=== PATIENT | female | born 1945 | race Caucasian/White ===

== ENCOUNTER → 2016-06-29 | Outpatient (CLI) | payer BC ==
[~2016-06-29] MED LIST: AMOX500C3 PO; ASPI81TA28 PO; BIMA0.01 OPB; HYDR500C3 PO; TPRSR/25 PO
== END | disposition home or self-care (01) ==
LOC: C.RDSM 13:20
PROVIDERS: ATTEND Physical Medicine & Rehabilitation Sports Medicine
DX: M25.562 Pain in left knee (principal)

== ENCOUNTER → 2016-09-05 | Outpatient (CLI) | payer BC ==
--- NOTE | 2016-09-05 15:01 | MAMMOGRAPHY REPORT ---
BILATERAL DIGITAL SCREENING MAMMOGRAM WITH CAD: 09/05/2016 TECHNIQUE: Current study was also evaluated with a Computer Aided Detection (CAD) system. Bilatera l CC and MLO views were obtained. COMPARISON: Comparison is made to exams dated: 09/05/2015 mammogram, 09/01/2014 mammogram, 08/28/2012 mammogram, 08/10/2011 mammogram, 08/31/2013 mammogram, and 08/09/2010 mammogram - [facility]. BREAST COMPOSITION: The tissue of both breasts is heterogeneously dense, which may obscure small ma sses. FINDINGS: No suspicious masses, calcifications, or areas of architectural distortion are noted in e ither breast. There has been no significant interval change compared to prior exams. Scattered bilat eral benign-appearing calcifications are not significantly changed. Ovoid asymmetry in the right la teral anterior breast is stable dating back to at least the 2008 exam. IMPRESSION: ACR BI-RADS CATEGORY 2: BENIGN There is no mammographic evidence of malignancy. A 1 year screening mammogram is recommended. The p atient will receive written notification of the results. Approximately 10% of breast cancers are not detected with mammography. A negative mammographic repor t should not delay biopsy if a clinically suggestive mass is present. Selene Lamb M.D. ah/:09/05/2016 13:41:01 Framer: Eryn CID)(M), [facility] letter sent: Normal 1/2 BI-RADS Code: ACR BI-RADS Category 2: Benign
== END | disposition home or self-care (01) ==
LOC: C.MAMM 11:19
PROVIDERS: ATTEND Obstetrics & Gynecology
DX: Z12.31 Encounter for screening mammogram for malignant neoplasm of breast (principal)

== ENCOUNTER → 2016-12-24 | Outpatient (CLI) | payer BC | END | disposition home or self-care (01) | LOC: C.MAMM 14:35 | PROVIDERS: ATTEND Family Medicine | DX: M81.0 Age-related osteoporosis without current pathological fracture (principal); M85.89 Other specified disorders of bone density and structure, multiple sites ==

== ENCOUNTER → 2017-07-23 | Outpatient (CLI) | payer BC ==
--- NOTE | 2017-07-23 09:10 | DIAGNOSTIC IMAGING REPORT ---
CHEST 2 VIEWS ROUTINE CLINICAL HISTORY: 72 years-old Female presenting with R43.8 R05 R63.4 R63.0 E04.9, diffuse goiter, weight loss. TECHNIQUE: PA and lateral views of the chest were obtained. COMPARISON: 07/26/2015. FINDINGS: Atherosclerosis of the aortic arch. Cardiac silhouette normal in size. Lungs and pleural spaces clear. Mildly exaggerated thoracic kyphosis. Osteopenia may be present. No compression deformity. Upper abdomen normal. IMPRESSION: 1. No acute cardiopulmonary disease. Electronically signed by: Kennedy Saeed M.D. 07/23/2017 9:09 AM Dictated Date/Time: 07/23/2017 9:07 AM
== END | disposition home or self-care (01) ==
LOC: C.RAD1850 08:55
PROVIDERS: ATTEND Family Medicine
DX: R43.8 Other disturbances of smell and taste (principal); R05 Cough; R63.4 Abnormal weight loss; R63.0 Anorexia; E04.9 Nontoxic goiter, unspecified

== ENCOUNTER → 2017-07-25 | Outpatient (CLI) | payer BC ==
--- NOTE | 2017-07-25 11:02 | DIAGNOSTIC IMAGING REPORT ---
SOFT TISS HEAD/NECK-THYROID CLINICAL HISTORY: 72 years-old Female with E04.9. Multinodular goiter COMPARISON: Thyroid ultrasound 02/24/2016 TECHNIQUE: Multiple real time sonographic images of the thyroid were obtained accessing franklin scale appearance and color doppler flow. FINDINGS: MEASUREMENTS: Right lobe: 6.9 x 1.9 x 2.3 cm Left lobe: 4.9 x 1.3 x 1.4 cm Isthmus: 0.4 cm PARENCHYMA: The thyroid parenchymal echotexture is diffusely heterogeneous. NODULES: Multiple bilateral thyroid nodules redemonstrated. There is a complex mixed echogenicity ovoid solid circumscribed nodule of the lower pole right thyroid with small internal cystic spaces, 3.8 x 2.3 x 3.1 cm, previously 4.1 x 3.6 x 2.0 cm. A spongiform-appearing solid nodule of the mid pole right thyroid measures 1.1 cm, previously 1.3 cm. The largest nodule on the left is solid and isoechoic with small internal cystic spaces and ill-defined margins, 1.7 x 1.2 x 0.9 cm, previously 1.5 x 1.3 x 0.9 cm. Additional solid subcentimeter nodules are also seen throughout. IMPRESSION: Multinodular goiter without significant change of the multiple thyroid nodules from comparison study dated 02/24/2016. The above report was generated using voice recognition software. It may contain grammatical, syntax or spelling errors. Electronically signed by: En Quintanilla M.D. 07/25/2017 11:01 AM Dictated Date/Time: 07/25/2017 10:56 AM
== END | disposition home or self-care (01) ==
LOC: C.ULTR 09:57
PROVIDERS: ATTEND Family Medicine
DX: E04.2 Nontoxic multinodular goiter (principal)

== ENCOUNTER → 2017-07-26 | Outpatient (CLI) | payer BC ==
[~2017-07-26] MED LIST changes: +OPTIRAY 320 IV PRN
--- NOTE | 2017-07-26 13:35 | DIAGNOSTIC IMAGING REPORT ---
CT SCAN OF THE ABDOMEN AND PELVIS WITH IV CONTRAST CLINICAL HISTORY: Anorexia. COMPARISON STUDY: Abdominal CT dated 08/12/2010. TECHNIQUE: Following the IV administration of 94 cc of Optiray 320, CT scan of the abdomen and pelvis is performed from the lung bases to the proximal femora. Images are reviewed in the axial, sagittal, and coronal planes. IV contrast was administered without complication. A dose lowering technique was utilized adhering to the principles of ALARA. CT DOSE: 354.69 mGycm FINDINGS: Lung bases: The heart is normal in size and without pericardial effusion. Minimal tree-in-bud opacities groundglass change are present at the left lung base, best seen on axial image #42. The lung bases are otherwise clear. Liver: The contrast-enhanced liver is normal in size, contour, and attenuation. There is no intrahepatic biliary ductal dilatation. The hepatic veins and portal veins are patent. There is an 8 cm cyst identified in the right hepatic lobe. This has increased in size from 2010 when it measured up to 6 cm. Additional tiny cysts are scattered throughout both hepatic lobes. Gallbladder: Calcified gallstones are identified. There is no CT evidence of acute cholecystitis. Spleen: Normal in size and attenuation. Pancreas: Unremarkable. Adrenal glands: Unremarkable. Kidneys: The contrast enhanced kidneys are normal in size and without hydronephrosis. The kidneys enhance symmetrically. A 2.6 cm cyst is noted in the left upper pole. Additional smaller cysts are identified, as well as scattered subcentimeter cortical hypodensities which also likely resent cysts but are too small for definitive characterization. Abdominal vasculature: The abdominal aorta is normal in course and caliber noting mild atherosclerotic calcification. Bowel: Moderate colonic fecal retention is observed. No bowel obstruction is seen. The appendix is not identified and reported surgically absent. Peritoneum: There is no intraperitoneal free air or abdominal ascites. Lymphadenopathy: None. Pelvic viscera: The bladder is normal as visualized. The uterus is surgically absent. No adnexal lesion is seen. Skeletal structures: The skeletal structures are osteopenic. Mild lumbosacral spondylosis is observed. No lytic or blastic lesions are seen. IMPRESSION: 1. There are no acute infectious or inflammatory findings in the abdomen or pelvis. 2. Mild patchy foci of tree-in-bud nodularity with faint groundglass change is seen at the left lung base. This likely represents a mild infectious/inflammatory pneumonitis. Clinical correlation will be required. 3. Moderate colonic fecal retention. 4. Cholelithiasis. 5. Additional findings as above. Electronically signed by: Nicolás Hernandez M.D. 07/26/2017 1:34 PM Dictated Date/Time: 07/26/2017 1:26 PM
== END | disposition home or self-care (01) ==
LOC: C.CTS 12:46
PROVIDERS: ATTEND Family Medicine
DX: R63.0 Anorexia (principal); K85.90 Acute pancreatitis without necrosis or infection, unspecified; R63.4 Abnormal weight loss; K80.20 Calculus of gallbladder without cholecystitis without obstruction; K59.00 Constipation, unspecified

== ENCOUNTER → 2017-10-15 | Outpatient (CLI) | payer BC ==
[~2017-10-15] MED LIST changes: -OPTIRAY 320 IV PRN
--- NOTE | 2017-10-16 15:45 | MAMMOGRAPHY REPORT ---
BILATERAL DIGITAL SCREENING MAMMOGRAM TOMOSYNTHESIS WITH CAD: 10/15/2017 CLINICAL HISTORY: Routine screening. Patient has no complaints. TECHNIQUE: Breast tomosynthesis in addition to standard 2D mammography was performed. Current study was also evaluated with a Computer Aided Detection (CAD) system. COMPARISON: Comparison is made to exams dated: 09/05/2016 mammogram, 09/05/2015 mammogram, 09/01/2014 m ammogram, 08/31/2013 mammogram, 08/28/2012 mammogram, and 08/10/2011 mammogram - [facility] enter. BREAST COMPOSITION: The tissue of both breasts is heterogeneously dense, which may obscure small mas ses. FINDINGS: There are a few stable benign rounded microcalcifications in the breasts. No suspicious ma ss, architectural distortion or cluster of microcalcifications is seen. IMPRESSION: ACR BI-RADS CATEGORY 1: NEGATIVE There is no mammographic evidence of malignancy. A 1 year screening mammogram is recommended. The pa tient will receive written notification of the results. Approximately 10% of breast cancers are not detected with mammography. A negative mammographic report should not delay biopsy if a clinically suggestive mass is present. Sarah Mae M.D. ay/:10/15/2017 15:55:53 Clinic Coordinator: Adry Delgado, [facility] letter sent: Normal 1/2 BI-RADS Code: ACR BI-RADS Category 1: Negative
== END | disposition home or self-care (01) ==
LOC: C.MAMM 15:30
PROVIDERS: ATTEND Family Medicine
DX: Z12.31 Encounter for screening mammogram for malignant neoplasm of breast (principal)

== ENCOUNTER 2023-01-17 15:40 | Inpatient (IN) ==
--- NOTE | 2023-01-17 16:05 | Emergency Department Note ---
History of Present Illness General Chief complaint: Hip Pain Stated complaint: FALL, RT HIP PAIN Time Seen by Provider: 01/17/23 15:58 Source: patient, RN notes reviewed and old records reviewed (I have reviewed endoscopy results from today as well as anesthesiology note) Mode of arrival: ambulatory Limitations: no limitations History of Present Illness Maximum Pain Intensity: 8 This patient is 77-year-old female who comes in after falling. She had just had an upper endoscopy. She has had ongoing weight loss and diarrhea. She said she was feeling fine and was putting her pants on when she tripped and fell she has right hip pain she is unable to bear weight. On my exam it is shortened and rotated. She denies that she hit her head and denies any other injuries. Denies loss of consciousness neck pain back pain chest pain shortness of breath or abdominal pain. She is being treated for Lyme disease at present and says her symptoms of gotten significantly better. Home Medications Medication Instructions Recorded Confirmed Type aspirin 81 mg tablet,delayed 81 mg PO HS 05/27/20 01/17/23 History release bimatoprost 0.01 % eye drops 1 drp ophthalmic (eye) HS 05/27/20 01/17/23 History ([place]) hydroxyurea 500 mg capsule 500 mg PO QAM 05/27/20 01/17/23 History metoprolol succinate 25 mg 25 mg PO QAM 05/27/20 01/17/23 History tablet,extended release 24 hr duloxetine 20 mg capsule,delayed 20 mg PO QPM 12/13/22 01/17/23 History release doxycycline hyclate 100 mg capsule 100 mg PO BID 21 days #42 caps 12/30/22 01/17/23 Rx Vitamin D3 500 mcg PO QAM 01/09/23 01/17/23 History pantoprazole 40 mg tablet,delayed 40 mg PO QAM 01/17/23 01/17/23 History release Allergies Allergy/AdvReac Type Severity Reaction Status Date / Time Iodinated Contrast Media Allergy Intermediate Hives/Itchi Verified 01/17/23 13:26 ng Past Med/Surg History Medical History Arthritis in both knees and hands Gallstones NO PROBLEM WITH Hx of renal calculi passed on own Lyme disease dx 12/23/22, currently on doxycycline Polycythemia rubra vera Tachycardia REASON FOR METOPROLOL Varicose veins of both lower extremities Surgical History History of colonoscopy History of esophagogastroduodenoscopy (EGD) History of hernia surgery X2 Hx of appendectomy done during hysterectomy Hx of bilateral cataract extraction Hx of tonsillectomy Hx of total hysterectomy with removal of both tubes and ovaries Family History Sister Family history of diabetes mellitus Son Family history of diabetes mellitus Social History Smoking Status: Never smoker Second Hand Exposure: No; Do You Dip or Chew Tobacco: No; Hx Alcohol Use: No Hx Substance Use: No Preferred Language: Filipino Communication Ability: Effective Anesthesiologist And Critical Care Required: No Beliefs That Will Affect Care: None Current Living Situation: Spouse and Family Current Living Situation Comment: 2 autistic sons Feels Safe at Home: Yes Assistive Devices: Denture - Upper, Denture - Lower and Glasses Review of Systems A total of 10 systems reviewed and were otherwise negative Physical Exam Vital Signs Vital Signs - 24 hr 01/17/23 15:43 01/17/23 16:34 01/17/23 16:24 Temperature 36.9 C Temperature Source Temporal Artery Scan Pulse Rate 75 77 80 Pulse Rhythm Regular Pulse Strength Normal Respiratory Rate 18 15 Respiratory Effort / Characteristics Non-Labored Respiratory Depth Normal Respiratory Pattern Regular Blood Pressure 129/76 Blood Pressure Mean 93 Blood Pressure Position Sitting Pulse Oximetry 99 Oxygen Delivery Method Room Air Sepsis Recent Fever Within 48 Hours No Sepsis New/Unexplained Change in Mental Status No Sepsis Action Taken by Nursing No Action Required 01/17/23 16:30 01/17/23 16:31 01/17/23 16:31 Temperature Temperature Source Pulse Rate 79 76 Pulse Rhythm Pulse Strength Respiratory Rate 23 14 Respiratory Effort / Characteristics Respiratory Depth Respiratory Pattern Blood Pressure 156/95 H Blood Pressure Mean 120 Blood Pressure Position Pulse Oximetry Oxygen Delivery Method Sepsis Recent Fever Within 48 Hours Sepsis New/Unexplained Change in Mental Status Sepsis Action Taken by Nursing 01/17/23 16:40 01/17/23 16:50 01/17/23 17:00 Temperature Temperature Source Pulse Rate 82 82 84 Pulse Rhythm Pulse Strength Respiratory Rate 19 15 16 Respiratory Effort / Characteristics Respiratory Depth Respiratory Pattern Blood Pressure Blood Pressure Mean Blood Pressure Position Pulse Oximetry Oxygen Delivery Method Sepsis Recent Fever Within 48 Hours Sepsis New/Unexplained Change in Mental Status Sepsis Action Taken by Nursing 01/17/23 17:01 01/17/23 17:01 01/17/23 17:10 Temperature Temperature Source Pulse Rate 86 85 Pulse Rhythm Pulse Strength Respiratory Rate 19 17 Respiratory Effort / Characteristics Respiratory Depth Respiratory Pattern Blood Pressure 141/68 H Blood Pressure Mean 113 Blood Pressure Position Pulse Oximetry Oxygen Delivery Method Sepsis Recent Fever Within 48 Hours Sepsis New/Unexplained Change in Mental Status Sepsis Action Taken by Nursing 01/17/23 17:20 01/17/23 17:30 01/17/23 17:30 Temperature Temperature Source Pulse Rate 84 85 Pulse Rhythm Pulse Strength Respiratory Rate 17 18 Respiratory Effort / Characteristics Respiratory Depth Respiratory Pattern Blood Pressure 155/105 H Blood Pressure Mean 127 Blood Pressure Position Pulse Oximetry Oxygen Delivery Method Sepsis Recent Fever Within 48 Hours Sepsis New/Unexplained Change in Mental Status Sepsis Action Taken by Nursing 01/17/23 17:40 01/17/23 17:50 01/17/23 18:00 Temperature Temperature Source Pulse Rate 88 83 Pulse Rhythm Pulse Strength Respiratory Rate 24 13 Respiratory Effort / Characteristics Respiratory Depth Respiratory Pattern Blood Pressure 157/78 H Blood Pressure Mean 113 Blood Pressure Position Pulse Oximetry Oxygen Delivery Method Sepsis Recent Fever Within 48 Hours Sepsis New/Unexplained Change in Mental Status Sepsis Action Taken by Nursing 01/17/23 18:00 01/17/23 18:10 Temperature Temperature Source Pulse Rate 92 H 82 Pulse Rhythm Pulse Strength Respiratory Rate 20 15 Respiratory Effort / Characteristics Respiratory Depth Respiratory Pattern Blood Pressure Blood Pressure Mean Blood Pressure Position Pulse Oximetry Oxygen Delivery Method Sepsis Recent Fever Within 48 Hours Sepsis New/Unexplained Change in Mental Status Sepsis Action Taken by Nursing General: Well developed well nourished non-ill appearing older female who appears in no acute distress, breathing comfortably on room air. Normal speech HEENT: Normal cephalic atraumatic. Pupils are equal round and reactive to light . Sclera anicteric extraocular movements are intact. Oropharynx is pink with moist mucous membranes. No swelling of the mouth lips or tongue. Neck: Supple with a midline trachea. No meningeal signs or stiffness, no JVD or bruits. No Stridor. Chest: Clear to auscultation bilaterally. No wheezes or rhonchi. No increased work of breathing. Heart: Regular rate and rhythm without murmurs or gallops. Abdomen: Soft nontender, nondistended without rebound guarding or rigidity. Extremities: No cyanosis clubbing or edema. No calf tenderness or assymetry. The right leg is extra internally rotated and shortened concerning for hip fracture/dislocation Spine/Back. Non tender to palpation. No CVA tenderness Skin: Good turgor without rashes. Neurologic exam: Cranial nerves two through 12 are intact. Motor and sensation are intact and symmetrical throughout. Course Administered Medications Duloxetine HCl (Duloxetine Hcl 20 Mg Cap) 20 mg PO QPM MARGARITA Stop: 02/16/23 20:59 Last Admin: 01/17/23 21:37 Dose: 20 mg Documented By: ADDIE Hydromorphone HCl (Hydromorphone Inj 0.5 Mg/0.5 Ml Syr) 0.5 mg IV Q3H PRN PRN Reason: Pain, breakthrough Stop: 01/31/23 18:25 Last Admin: 01/17/23 23:15 Dose: 0.5 mg Documented By: Admin: 01/17/23 19:11 Dose: 0.5 mg Documented By: REBECCA Lactated Ringer's (Lr) 1,000 mls @ 80 mls/hr IV .[id number] MARGARITA Stop: 02/16/23 17:29 Last Admin: 01/17/23 18:03 Dose: 125 mls/hr Documented By: REBECCA Acetaminophen (Ofirmev) 1,000 mg in 100 mls @ 400 mls/hr IV Q8H PRN PRN Reason: pain, first line Stop: 01/20/23 18:25 Last Infusion: 01/17/23 19:23 Dose: 0 mls/hr Documented By: Admin: 01/17/23 19:02 Dose: 400 mls/hr Documented By: REBECCA Discontinued Medications Potassium Chloride (K Earnest / Wtr) 10 meq in 100 mls @ 100 mls/hr IV Q1H MARGARITA Stop: 01/17/23 21:59 Last Admin: 01/17/23 23:11 Dose: 100 mls/hr Documented By: Infusion: 01/17/23 22:38 Dose: 100 mls/hr Documented By: Admin: 01/17/23 21:38 Dose: 100 mls/hr Documented By: Infusion: 01/17/23 20:19 Dose: 0 mls/hr Documented By: Admin: 01/17/23 19:06 Dose: 100 mls/hr Documented By: Infusion: 01/17/23 19:06 Dose: 0 mls/hr Documented By: Admin: 01/17/23 18:03 Dose: 100 mls/hr Documented By: REBECCA Magnesium Sulfate/Dextrose (Magnesium Sulfate / D5w) 1 gm in 100 mls @ 50 mls/hr IV Q2H MARGARITA Stop: 01/17/23 22:29 Last Admin: 01/17/23 21:38 Dose: 50 mls/hr Documented By: Infusion: 01/17/23 21:11 Dose: 50 mls/hr Documented By: Admin: 01/17/23 19:11 Dose: 50 mls/hr Documented By: REBECCA Magnesium Oxide (Magnesium Oxide 400 Mg Tab) 400 mg PO NOW STA Stop: 01/17/23 18:28 Last Admin: 01/17/23 19:02 Dose: 400 mg Documented By: REBECCA Morphine Sulfate (Morphine Sulfate 2 Mg/Ml Carp) 2 mg IV NOW STA Stop: 01/17/23 16:08 Last Admin: 01/17/23 16:19 Dose: 2 mg Documented By: REBECCA Ondansetron HCl (Ondansetron Inj 2 Mg/Ml 2 Ml Vial) 4 mg IV NOW STA Stop: 01/17/23 16:08 Last Admin: 01/17/23 16:19 Dose: 4 mg Documented By: REBECCA Medical Decision Making Differential Diagnosis Hip fracture, hip dislocation, pelvic fracture, electrolyte or metabolic abnormality, anemia, traumatic injury Medical Records Attestation: I reviewed the patient's medical records. Home Medications Current Medication List: was personally reviewed by me Laboratory Data Attestation: I reviewed the patient's lab results. 01/17/23 16:07 01/17/23 20:24 Lab Results 01/17/23 01/17/23 01/17/23 Range/Units 16:07 16:07 16:58 WBC 5.34 (4.8-10.8) K/ul RBC 3.57 L (4.20-5.40) M/uL Hgb 13.1 (12.0-16.0) g/dl Hct 38.2 (37.0-47.0) % MCV 107.0 H (80.0-100.0) fL MCH 36.7 H (25.0-34.0) pg MCHC 34.3 (32.0-36.0) g/dL RDW Std Deviation 63.1 H (36.4-46.3) fL RDW Coeff of Zehra 15.7 H (11.5-14.5) % Plt Count 347 (130-400) K/uL MPV 10.2 (9.4-12.4) fL Immature Gran % (Auto) 0.2 % Neut % (Auto) 59.9 % Lymph % (Auto) 27.9 % [place] % (Auto) 7.7 % Eos % (Auto) 3.2 % Baso % (Auto) 1.1 % Neut # (Auto) 3.20 (1.40-6.50) K/uL Lymph # (Auto) 1.49 (1.2-3.4) K/uL [place] # (Auto) 0.41 (0.11-0.59) K/uL Eos # (Auto) 0.17 (0-0.50) K/uL Baso # (Auto) 0.06 (0-0.2) K/uL Immature Gran # (Auto) 0.01 (0.01-0.20) K/uL PT (9.0-12.0) Seconds INR (0.9-1.1) APTT (21.0-31.0) Seconds PTT Ratio Sodium 133 L (136-145) mmol/L Potassium 2.9 L (3.5-5.1) mmol/L Chloride 101 (98-107) mmol/L Carbon Dioxide 22 (21-32) mmol/L Anion Gap 10 (3-11) BUN 12 (6-23) mg/dl Creatinine 0.66 (0.6-1.2) mg/dl Est Cr Clr Drug Dosing Not Reportable Est GFR ( Amer) 98.1 ml/min Est GFR (Non-Af Amer) 84.6 ml/min BUN/Creatinine Ratio 18.2 (10-20) Glucose 102 H (70-99(Fasting)) mg/dl Calcium 9.2 (8.6-10.3) mg/dl Magnesium (1.7-2.4) mg/dl Total Bilirubin 0.8 (0.2-1.0) mg/dl AST 19 (13-39) U/L ALT 13 (7-52) U/L Alkaline Phosphatase 38 (34-104) U/L Total Protein 6.5 (6.0-8.3) gm/dl Albumin 3.9 (3.4-5.0) gm/dl Globulin 2.6 (2.5-4.0) gm/dl Albumin/Globulin Ratio 1.5 (0.9-2) Urine Color Yellow Urine Appearance Clear (Clear) Urine pH 6.5 (4.5-7.5) Ur Specific [place] 1.011 (1.000-1.030) Urine Protein Negative (Negative) Urine Glucose (UA) Negative (Negative) Urine Ketones 1+ H (Negative) Urine Blood 2+ H (Negative) Urine Nitrite Negative (Negative) Urine Bilirubin Negative (Negative) Urine Urobilinogen Negative (Negative) Ur Leukocyte Esterase Negative (Negative) Urine WBC (Auto) 1-5 (0-5) /hpf Urine RBC (Auto) 10-30 H (0-4) /hpf U Hyaline Cast (Auto) 1-5 (0-5) /lpf U Epithel Cells (Auto) 10-20 H (0-5) /lpf Urine Bacteria (Auto) Negative (Negative) Blood Type Antibody Screen 01/17/23 01/17/23 01/17/23 Range/Units 17:47 17:47 17:47 WBC (4.8-10.8) K/ul RBC (4.20-5.40) M/uL Hgb (12.0-16.0) g/dl Hct (37.0-47.0) % MCV (80.0-100.0) fL MCH (25.0-34.0) pg MCHC (32.0-36.0) g/dL RDW Std Deviation (36.4-46.3) fL RDW Coeff of Zehra (11.5-14.5) % Plt Count (130-400) K/uL MPV (9.4-12.4) fL Immature Gran % (Auto) % Neut % (Auto) % Lymph % (Auto) % [place] % (Auto) % Eos % (Auto) % Baso % (Auto) % Neut # (Auto) (1.40-6.50) K/uL Lymph # (Auto) (1.2-3.4) K/uL [place] # (Auto) (0.11-0.59) K/uL Eos # (Auto) (0-0.50) K/uL Baso # (Auto) (0-0.2) K/uL Immature Gran # (Auto) (0.01-0.20) K/uL PT 12.0 (9.0-12.0) Seconds INR 1.1 (0.9-1.1) APTT 27.9 (21.0-31.0) Seconds PTT Ratio 1.0 Sodium (136-145) mmol/L Potassium (3.5-5.1) mmol/L Chloride (98-107) mmol/L Carbon Dioxide (21-32) mmol/L Anion Gap (3-11) BUN (6-23) mg/dl Creatinine (0.6-1.2) mg/dl Est Cr Clr Drug Dosing Est GFR ( Amer) ml/min Est GFR (Non-Af Amer) ml/min BUN/Creatinine Ratio (10-20) Glucose (70-99(Fasting)) mg/dl Calcium (8.6-10.3) mg/dl Magnesium 1.5 L (1.7-2.4) mg/dl Total Bilirubin (0.2-1.0) mg/dl AST (13-39) U/L ALT (7-52) U/L Alkaline Phosphatase (34-104) U/L Total Protein (6.0-8.3) gm/dl Albumin (3.4-5.0) gm/dl Globulin (2.5-4.0) gm/dl Albumin/Globulin Ratio (0.9-2) Urine Color Urine Appearance (Clear) Urine pH (4.5-7.5) Ur Specific [place] (1.000-1.030) Urine Protein (Negative) Urine Glucose (UA) (Negative) Urine Ketones (Negative) Urine Blood (Negative) Urine Nitrite (Negative) Urine Bilirubin (Negative) Urine Urobilinogen (Negative) Ur Leukocyte Esterase (Negative) Urine WBC (Auto) (0-5) /hpf Urine RBC (Auto) (0-4) /hpf U Hyaline Cast (Auto) (0-5) /lpf U Epithel Cells (Auto) (0-5) /lpf Urine Bacteria (Auto) (Negative) Blood Type A Positive Antibody Screen NEGATIVE Imaging Data Attestation: I personally reviewed and interpreted this imaging study as fo llows: My Impression: Right hip x-ray-there is a right intratrochanteric hip fracture. No significant displacement Chest x-rayno acute infiltrate, failure, pneumothorax seen Radiologist's Impression: Hip X-Ray 01/17/23 16:07 RIGHT HIP 2 VIEWS CLINICAL HISTORY: Fall. Right hip injury. FINDINGS: AP and crosstable lateral views of the right hip are compared to study dated 07/24/2022. The skeletal structures are osteopenic. There is a comminuted and mildly displaced intertrochanteric fracture of the right proximal femur with overlying soft tissue edema. The visualized right hemipelvis appears intact. Advanced arthritic change is noted in the right hip. There is degenerative sclerosis of the right sacroiliac joint and the pubic symphysis. IMPRESSION: Intertrochanteric fracture of the right proximal femur as above. Electronically signed by: Nicolás Hernandez M.D. 01/17/2023 5:02 PM Chest X-Ray 01/17/23 16:08 SINGLE VIEW CHEST CLINICAL HISTORY: Fall. Hip fracture. FINDINGS: An AP, portable, supine chest radiograph is compared to study dated 12/13/2022. The cardiomediastinal silhouette is unremarkable. Chronic interstitial thickening is similar to previous. The lungs and pleural spaces are clear. No pneumothorax is seen. The skeletal structures are osteopenic. The bony thorax is grossly intact. IMPRESSION: No acute cardiopulmonary abnormality. ACT 112: Negative or not required by law. Electronically signed by: Nicolás Hernandez M.D. 01/17/2023 5:01 PM ECG Data Attestation: I personally reviewed and interpreted this ECG as follows: Indication: + weakness Rate (beats per minute): 75 Rhythm: + normal sinus ECG Intervals/blocks: + Normal QRS, + Normal QT and + Normal CT ECG [place]: + Normal ECG ST segments: + Normal ST segments ECG Findings: + Poor R wave progression; no PACs or no PVCs Comparison ECG Date: from (12/13/22) Change: no significant change MDM Narrative This patient comes in as described above. she is did suffer a mechanical fall while getting dressed after having endoscopy. She injured her hip and concerned that it is likely fracture based on her exam. she is neurologically and neurovascularly intact but is rotated and shortened. IV access was established. she is not driving. she was given morphine 2 mg IV for pain as well as Zofran 4 mg IV. Multiple blood testing was obtained x-rays obtained of the hip and the chest as per hip fracture protocol. She was reassessed. EKG does not suggest any acute coronary syndrome or arrhythmia she is no sick electrolyte or metabolic abnormalities. Chest x-ray shows no acute findings she was noted on x-ray however to have a intertrochanteric hip fracture which fits her clinical picture unfortunately. She will need to come into the hospital for further treatment and evaluation and orthopedic care would likely surgery. I have consult Dr. Valiente to see the patient he also asked that I talked to on-call Ortho and I discussed the case with Dr. Joshua who agreed with the plan. The patient has seen Dr. Davis in the past. She will be admitted for treatment evaluation of her left hip fracture. She does have mild hyponatremia and hypokalemia. Impression & Plan Fracture of right hip, Fall, Hypokalemia, Hyponatremia Discharge Plan Visit Data Chief Complaint: Hip Pain Stated Complaint: FALL, RT HIP PAIN ED Provider: William Baeza Discharge Problem: Fracture of right hip, Fall, Hypokalemia, Hyponatremia Patient Disposition: Admitted As Inpatient Discharge Instructions Interventions: ED Discharge Assessment Last Done: 01/17/23 19:26
[2023-01-17] MEDS ORDERED: ONDANSETRON INJ 2 MG/ML 2 ML VIAL IV STA (16:07)
[2023-01-17] MEDS ORDERED: MoRPHine SULFATE 2 MG/ML CARP IV STA (16:07)
[2023-01-17 16:28] LABS: Basophils # (auto) 0.06 K/uL (0-0.2); Basophils % (auto) 1.1 %; Eosinophils # (auto) 0.17 K/uL (0-0.50); Eosinophils % (auto) 3.2 %; Hematocrit (blood only) 38.2 % (37.0-47.0); Hemoglobin 13.1 g/dl (12.0-16.0); Immature Granulocytes # (auto) 0.01 K/uL (0.01-0.20); Immature Granulocytes % (auto) 0.2 %; Lymphocytes # (auto) 1.49 K/uL (1.2-3.4); Lymphocytes % (auto) 27.9 %; Mean Corpuscular Hemoglobin 36.7 pg (25.0-34.0); Mean Corpuscular Hgb Conc 34.3 g/dL (32.0-36.0); Mean Platelet Volume 10.2 fL (9.4-12.4); Monocytes # (auto) 0.41 K/uL (0.11-0.59); Monocytes % (auto) 7.7 %; Neutrophils % (auto) 59.9 %; Platelet Count 347 K/uL (130-400); RDW Coefficient of Variation 15.7 % (11.5-14.5); RDW Standard Deviation 63.1 fL (36.4-46.3); Red Blood Count 3.57 M/uL (4.20-5.40); White Blood Count 5.34 K/ul (4.8-10.8)
[2023-01-17 16:40] LABS: Albumin Level 3.9 gm/dl (3.4-5.0); Anion Gap 10 (3-11); Bilirubin,Total 0.8 mg/dl (0.2-1.0); Calcium 9.2 mg/dl (8.6-10.3); Carbon Dioxide 22 mmol/L (21-32); Chloride 101 mmol/L (98-107); Potassium 2.9 mmol/L (3.5-5.1); Sodium 133 mmol/L (136-145)
[2023-01-17 16:46] LABS: Alanine Aminotransferase 13 U/L (7-52); Albumin Globulin Ratio 1.5 (0.9-2); Alkaline Phosphatase 38 U/L (34-104); Aspartate Aminotransferase 19 U/L (13-39); BUN Creatinine Ratio 18.2 (10-20); Blood Urea Nitrogen 12 mg/dl (6-23); Est GFR (African American) 98.1 ml/min; Est GFR (Non-African American) 84.6 ml/min; Globulin 2.6 gm/dl (2.5-4.0); Glucose 102 mg/dl (70-99(Fasting)); Total Protein 6.5 gm/dl (6.0-8.3)
--- NOTE | 2023-01-17 17:02 | XRay Report ---
SINGLE VIEW CHEST CLINICAL HISTORY: Fall. Hip fracture. FINDINGS: An AP, portable, supine chest radiograph is compared to study dated 12/13/2022. The cardiome diastinal silhouette is unremarkable. Chronic interstitial thickening is similar to previous. The duane gs and pleural spaces are clear. No pneumothorax is seen. The skeletal structures are osteopenic. The bony thorax is grossly intact. IMPRESSION: No acute cardiopulmonary abnormality. ACT 112: Negative or not required by law. Electronically signed by: Nicolás Hernandez M.D. 01/17/2023 5:01 PM
--- NOTE | 2023-01-17 17:03 | XRay Report ---
RIGHT HIP 2 VIEWS CLINICAL HISTORY: Fall. Right hip injury. FINDINGS: AP and crosstable lateral views of the right hip are compared to study dated 07/24/2022. The skeletal structures are osteopenic. There is a comminuted and mildly displaced intertrochanteric frac ture of the right proximal femur with overlying soft tissue edema. The visualized right hemipelvis ap pears intact. Advanced arthritic change is noted in the right hip. There is degenerative sclerosis of the right sacroiliac joint and the pubic symphysis. IMPRESSION: Intertrochanteric fracture of the right proximal femur as above. Electronically signed by: Nicolás Hernandez M.D. 01/17/2023 5:02 PM
[2023-01-17 17:16] LABS: Appearance Urine Clear (Clear); Bacteria Urine Automated Negative (Negative); Bilirubin Urine Negative (Negative); Blood Urine 2+ (Negative); Color Urine Yellow; Glucose Urine UA Negative (Negative); Ketones Urine 1+ (Negative); Leukocyte Esterase Urine Negative (Negative); Nitrite Urine Negative (Negative); Protein Urine Negative (Negative); Specific Gravity Urine 1.011 (1.000-1.030); Urobilinogen Urine Negative (Negative); pH Urine 6.5 (4.5-7.5)
[2023-01-17] MEDS ORDERED: ONDANSETRON INJ 2 MG/ML 2 ML VIAL IV PRN (17:26)
[2023-01-17] MEDS ORDERED: NALOXONE HCL 0.4 MG/1 ML VIAL/CARP IV PRN (17:26)
[2023-01-17] MEDS ORDERED: bisacodyL 10 MG SUPP PR PRN (17:26)
[2023-01-17] MEDS ORDERED: MAGNESIUM HYDROXIDE SUSP 30 ML UDC PO PRN (17:26)
--- NOTE | 2023-01-17 17:27 | History & Physical Report ---
Date of Service January 17, 2023 Assessment & Plan (1) Fracture of right hip: Plan: Right hip fracture Patient underwent EGD/colonoscopy and upon preparing to leave fell while putting on her pants with immediate right hip pain No leukocytosis Hemoglobin 13.1 Creatinine 0.66 No history of CAD/heart failure/insulin use UA uninfected appearing Right hip x-ray: Intertrochanteric fracture of the right proximal RCRI 0 points. Class I risk, 3.9% 30 day mortality. Recommend optimization of electrolyte abnormalities including hypokalemia, then may undergo surgical repair of her acute hip fracture. Goal K >3.5, ideally 4.0. Repletion ordered. EKG: Normal sinus rhythm, no acute change, no ST segment/T wave territorial change. QTc 437. Rate 70 Hale ordered, bedrest, type and screen ordered Orthopedics consulted. Anticipate operative repair 01/18 pending improvement in potassium/magnesium. Aspirin held, n.p.o. at midnight Diarrhea, chronic. Resolved Following GI as outpatient EGD 01/17/2023: Normal esophagus/stomach/duodenum Colonoscopy 01/18/2020: Nonbleeding hemorrhoids. C. difficile/fluid aspiration bacterial cultures taken. No other obvious abnormalities appreciated. C. difficile was negative, confirmed at time of admission Follow pending GI cultures, will keep on seizure precautions until this is resulted Hypertension Aspirin held Continue metoprolol, do not hold for beta-orger withdrawal BP reasonably controlled with pain control Hypokalemia - 2.9 on admit. IV repletion ordered -Patient is concurrently hypomagnesemic, 1.5 on admit. IV and oral repletion ordered. Optimize goal 2.0 Hyponatremia Chronic, mild. In the setting of poor p.o. intake and diarrhea. Suspect solute depletion. IVFM DVT prophylaxis: SCDs Diet: N.p.o. pending surgical evaluation Disposition: Medical/surgical CODE STATUS (2) Fall: (3) Hypokalemia: History of Present Illness Primary Care Provider: Almaz Burt MD Shana is a 77-year-old female with past medical history of tachycardia, cataracts, colitis, thrombocytosis followed with hematology oncology, generalized weakness who presents to the emergency department after a fall with immediate right hip pain and inability to bear weight. She has had ongoing weight loss and diarrhea Shana is seen at the bedside. She reports that she had a colonoscopy and endoscopy for chronic diarrhea which actually went well, but when she was attempting to put on her pants to get ready to leave she lost her balance and fell striking her right hip and having immediate pain and inability to bear weight. She had no chest pain or chest pressure, denies fever, chills, sweats, and did not have any lightheadedness/dizziness/syncope/presyncope/vertigo that contributed to her fall. She feels sensation is intact in her feet bilaterally, and she is able to move her ankles but cannot flex at her right hip. She has no history of coronary disease, diabetes, or hypertension. She has chronic hypokalemia with diarrhea which has normalized with IV treatment in the past. She notes that her diarrhea did resolve about 7 days ago and she has not had diarrhea in the last week.She has previously seen Dr. Enriquez for arthritis, and was thinking about a right hip replacement but had not yet done this. takes aspirin, but does not take any anticoagulants. At time of bedside visit she rep orts she feels okay, but she is thirsty and still has pain with any attempted movement of her right hip. Feels comfortable as long as she does not move in the bed. Medical History: Reviewed Medications: Reviewed Surgical History: Reviewed Family history: Reviewed Allergies: Reviewed Social History: Reviewed Code Status: Full code Allergies Allergy/AdvReac Type Severity Reaction Status Date / Time Iodinated Contrast Media Allergy Intermediate Hives/Itchi Verified 01/17/23 13:26 Home Medications Medication Instructions Recorded Confirmed Type aspirin 81 mg tablet,delayed 81 mg PO HS 05/27/20 01/17/23 History release bimatoprost 0.01 % eye drops 1 drp ophthalmic (eye) HS 05/27/20 01/17/23 History (Lumigan) hydroxyurea 500 mg capsule 500 mg PO QAM 05/27/20 01/17/23 History metoprolol succinate 25 mg 25 mg PO QAM 05/27/20 01/17/23 History tablet,extended release 24 hr duloxetine 20 mg capsule,delayed 20 mg PO QPM 12/13/22 01/17/23 History release doxycycline hyclate 100 mg capsule 100 mg PO BID 21 days #42 caps 12/30/22 01/17/23 Rx Vitamin D3 500 mcg PO QAM 01/09/23 01/17/23 History pantoprazole 40 mg tablet,delayed 40 mg PO QAM 01/17/23 01/17/23 History release Past Med/Surg History Medical History Arthritis in both knees and hands Gallstones NO PROBLEM WITH Hx of renal calculi passed on own Lyme disease dx 12/23/22, currently on doxycycline Polycythemia rubra vera Tachycardia REASON FOR METOPROLOL Varicose veins of both lower extremities Surgical History History of colonoscopy History of esophagogastroduodenoscopy (EGD) History of hernia surgery X2 Hx of appendectomy done during hysterectomy Hx of bilateral cataract extraction Hx of tonsillectomy Hx of total hysterectomy with removal of both tubes and ovaries Family History Sister Family history of diabetes mellitus Son Family history of diabetes mellitus Social History Smoking Status: Never smoker Second Hand Exposure: No; Do You Dip or Chew Tobacco: No; Hx Alcohol Use: No Hx Substance Use: No Preferred Language: Ethiopian Communication Ability: Effective Enterprise Analyst Required: No Beliefs That Will Affect Care: None Current Living Situation: Spouse and Family Current Living Situation Comment: 2 autistic sons Feels Safe at Home: Yes Assistive Devices: Denture - Upper, Denture - Lower and Glasses Review of Systems Review of Systems: All systems reviewed & are unremarkable except as noted in Subjective Physical Exam Physical Exam: General: A&Ox3. NAD. Cooperative. HEENT: Atraumatic, normocephalic. Vision/hearing grossly intact Pulm: CTAB A&P. -wheezes, -rales, -rhonchi. Symmetrical chest rise. No increased work of breathing. No respiratory distress. Cardiac: RRR, -mrg. Radial pulses intact and symmetrical. Abdominal: Nontender, nondistended, soft. BS present. Extremities: Right lower extremity is externally rotated and shortened. Ankle dorsiflexion/plantarflexion is 5/5 bilaterally. Patient is tender to palpation at the anterior right hip. PT pulse intact bilaterally, sensation to soft touch is intact in the feet bilaterally. Upper extremity strength including java web engineer strength and elbow flexion is intact bilaterally Results & Data Results & Data Vital Signs (Past 12 Hours) Vital Signs Temp Pulse Resp BP Pulse Ox O2 Del Method 01/17/23 16:34 77 01/17/23 15:43 36.9 C 75 18 129/76 99 Room Air PG Care Time/CCT Total # of Minutes Spent Total Time Spent with Patient: Total time spent is greater than 50% in coordination of care (as documented) at patient's floor/unit and/or counseling patient: Coding Level of Care Code 85610 INT INP/OBS CARE 75MIN Diagnoses Fracture of right hip S72.001A Fall W19.XXXA Hypokalemia E87.6
[2023-01-17] MEDS: LACTATED RINGER'S 1,000 ML IV SCH (18:03)
[2023-01-17] MEDS: POTASSIUM CHLORIDE / WTR 10 MEQ/100 ML PLCT IV SCH ×4 (18:03→23:11)
[2023-01-17 18:27] LABS: INR 1.1 (0.9-1.1); Partial Thromboplastin Time 27.9 Seconds (21.0-31.0)
[2023-01-17] MEDS ORDERED: MAGNESIUM OXIDE 400 MG TAB PO STA (18:27)
[2023-01-17] MEDS ORDERED: Patient's HEIGHT &/or WEIGHT Needed SCH (18:45)
[2023-01-17] MEDS: ACETAMINOPHEN 1,000 MG/100 ML VIAL IV PRN (19:02)
[2023-01-17] MEDS: MAGNESIUM SULFATE / D5W 1 GM/100 ML BAG IV SCH ×2 (19:11→21:38)
[2023-01-17] MEDS: HYDROmorphone INJ 0.5 MG/0.5 ML SYR IV PRN ×2 (19:11→23:15)
[2023-01-17] MEDS ORDERED: DOCUSATE SODIUM/SENNA 50/8.6MG TAB PO SCH (21:00)
[2023-01-17 21:15] LABS: Calcium 8.6 mg/dl (8.6-10.3); Creatinine Clr Calc Pharmacy 72.8 ml/min; Est GFR (African American) 104.1 ml/min; Est GFR (Non-African American) 89.8 ml/min; Potassium 3.1 mmol/L (3.5-5.1)
[2023-01-17] MEDS: DULoxetine HCL 20 MG CAP PO SCH (21:37)
[2023-01-18 01:31] LABS: Calcium 8.5 mg/dl (8.6-10.3); Est GFR (African American) 102.3 ml/min; Est GFR (Non-African American) 88.3 ml/min
[2023-01-18] MEDS: LACTATED RINGER'S 1,000 ML IV SCH (04:14)
[2023-01-18 04:25] LABS: BUN Creatinine Ratio 19.3 (10-20); Calcium 8.1 mg/dl (8.6-10.3); Creatinine Clr Calc Pharmacy 70.2 ml/min; Est GFR (African American) 102.9 ml/min; Est GFR (Non-African American) 88.8 ml/min; Magnesium 1.9 mg/dl (1.7-2.4); Potassium 4.2 mmol/L (3.5-5.1)
[2023-01-18] MEDS: HYDROmorphone INJ 0.5 MG/0.5 ML SYR IV PRN ×3 (06:07→20:33)
[2023-01-18] MEDS: MAGNESIUM OXIDE 400 MG TAB PO SCH (07:57)
[2023-01-18] MEDS: HYDROXYUREA 500 MG CAP PO SCH (07:57)
[2023-01-18] MEDS: METOPROLOL SUCC 25MG EXT REL TAB PO SCH (07:57)
--- NOTE | 2023-01-18 08:25 | Orthopedic Consultation ---
Date of Consultation January 18, 2023 Assessment & Plan (1) Fracture of right hip: X-rays reviewed by Dr. Joshua and myself. Intertrochanteric hip fracture of the right hip. Patient will require a right trochanteric femoral nailing. This has been discussed with the patient of which she is agreeable. Plans will be to take her to the operating room this afternoon for above-noted right TFN. History of Present Illness Reason for Consultation: Right intertrochanteric hip fracture Attending Physician: Hugo Lopez MD History of Present Illness Patient is a 77-year-old female with past medical history of tachycardia, cataracts, colitis, thrombocytosis followed with hematology oncology, generalized weakness who presents to the emergency department after a fall with immediate right hip pain and inability to bear weight. She has had ongoing weight loss and diarrhea. Patient states that she was actually here for an e ndoscopic exam yesterday following the exam she was getting dressed to leave. She states that she felt she could do it on her own however at one point when she was putting on her pants, she lost her balance and fell striking her left hip and lower extremity. She was trying to ambulate after the fall but continued to have increased groin pain in the right hip. She was thusly taken over the emergency room and seen by the staff. X-rays were taken. It was found that she had an intertrochanteric hip fracture of the right hip. She was admitted by the hospitalist service and we have been asked to see her for her hip fracture. She is currently awake and alert. She is comfortable at rest. Allergies Allergy/AdvReac Type Severity Reaction Status Date / Time Iodinated Contrast Media Allergy Intermediate Hives/Itchi Verified 01/17/23 13:26 ng Home Medications Medication Instructions Recorded Confirmed Type aspirin 81 mg tablet,delayed 81 mg PO HS 05/27/20 01/17/23 History release bimatoprost 0.01 % eye drops 1 drp ophthalmic (eye) HS 05/27/20 01/17/23 History (Lumigan) hydroxyurea 500 mg capsule 500 mg PO QAM 05/27/20 01/17/23 History metoprolol succinate 25 mg 25 mg PO QAM 05/27/20 01/17/23 History tablet,extended release 24 hr duloxetine 20 mg capsule,delayed 20 mg PO QPM 12/13/22 01/17/23 History release doxycycline hyclate 100 mg capsule 100 mg PO BID 21 days #42 caps 12/30/22 01/17/23 Rx Vitamin D3 500 mcg PO QAM 01/09/23 01/17/23 History pantoprazole 40 mg tablet,delayed 40 mg PO QAM 01/17/23 01/17/23 History release Patient History Medical History Arthritis in both knees and hands Gallstones NO PROBLEM WITH Hx of renal calculi passed on own Lyme disease dx 12/23/22, currently on doxycycline Polycythemia rubra vera Tachycardia REASON FOR METOPROLOL Varicose veins of both lower extremities Surgical History History of colonoscopy History of esophagogastroduodenoscopy (EGD) History of hernia surgery X2 Hx of appendectomy done during hysterectomy Hx of bilateral cataract extraction Hx of tonsillectomy Hx of total hysterectomy with removal of both tubes and ovaries Family History Sister Family history of diabetes mellitus Son Family history of diabetes mellitus Social History Smoking Status: Never smoker Second Hand Exposure: No; Do You Dip or Chew Tobacco: No; Hx Alcohol Use: No Hx Substance Use: No Preferred Language: [place] Communication Ability: Effective Nutrition Representative Required: No Beliefs That Will Affect Care: None Current Living Situation: Spouse Current Living Situation Comment: With and two children Other Information That Helps Us Care for You: No Feels Safe at Home: Yes Safety Concerns: Feels Safe At This Time Assistive Devices: None Physical Exam Physical Exam: Patient is a 77-year-old white female who appears her stated age. She is alert and oriented x3. No acute distress. Pleasant and cooperative. On examination of her right lower extremity, she has some mild shortening and e xternal rotation of the right lower extremity compared to the left. She has pain on palpation of the lateral hip at this time. No range of motion is performed at this time secondary to right hip fracture. She has some noted soft tissue swelling around the right knee with no ecchymosis. She does have bilateral valgus deformities of the knees. Knee range of motion of the right knee is deferred due to right hip fracture. She has no pain on palpation of the right knee at this time. She has good range of motion of her right ankle and toes. Denies discomfort. Left lower extremity is unaffected and she has no pain in the left hip, left knee, left ankle. Calves are soft and nontender. Upper extremities are unaffected. She is nontender at the shoulders, elbows, and wrists. She denies any cervical, thoracic, lumbar pain at this time. There is no gross motor or sensory loss seen at this time. Distal pulses are equal bilaterally of the upper and lower extremities Results & Data Vital Signs (Past 12 Hours) Vital Signs Temp Pulse Resp BP Pulse Ox O2 Del Method 01/18/23 07:17 36.5 C 90 16 112/66 97 Room Air 01/17/23 21:40 Room Air Laboratory Results Laboratory Results WBC 5.34 K/ul (4.8-10.8) 01/17/23 16:07 RBC 3.57 M/uL (4.20-5.40) L 01/17/23 16:07 Hgb 13.1 g/dl (12.0-16.0) 01/17/23 16:07 Hct 38.2 % (37.0-47.0) 01/17/23 16:07 MCV 107.0 fL (80.0-100.0) H 01/17/23 16:07 MCH 36.7 pg (25.0-34.0) H 01/17/23 16:07 MCHC 34.3 g/dL (32.0-36.0) 01/17/23 16:07 RDW Std Deviation 63.1 fL (36.4-46.3) H 01/17/23 16:07 RDW Coeff of Zehra 15.7 % (11.5-14.5) H 01/17/23 16:07 Plt Count 347 K/uL (130-400) 01/17/23 16:07 MPV 10.2 fL (9.4-12.4) 01/17/23 16:07 Immature Gran % (Auto) 0.2 % 01/17/23 16:07 Neut % (Auto) 59.9 % 01/17/23 16:07 Lymph % (Auto) 27.9 % 01/17/23 16:07 Wilkes % (Auto) 7.7 % 01/17/23 16:07 Eos % (Auto) 3.2 % 01/17/23 16:07 Baso % (Auto) 1.1 % 01/17/23 16:07 Neut # (Auto) 3.20 K/uL (1.40-6.50) 01/17/23 16:07 Lymph # (Auto) 1.49 K/uL (1.2-3.4) 01/17/23 16:07 Wilkes # (Auto) 0.41 K/uL (0.11-0.59) 01/17/23 16:07 Eos # (Auto) 0.17 K/uL (0-0.50) 01/17/23 16:07 Baso # (Auto) 0.06 K/uL (0-0.2) 01/17/23 16:07 Immature Gran # (Auto) 0.01 K/uL (0.01-0.20) 01/17/23 16:07 PT 12.0 Seconds (9.0-12.0) 01/17/23 17:47 INR 1.1 (0.9-1.1) 01/17/23 17:47 APTT 27.9 Seconds (21.0-31.0) 01/17/23 17:47 PTT Ratio 1.0 01/17/23 17:47 Sodium 130 mmol/L (136-145) L 01/18/23 03:57 Potassium 4.2 mmol/L (3.5-5.1) 01/18/23 03:57 Chloride 100 mmol/L (98-107) 01/18/23 03:57 Carbon Dioxide 26 mmol/L (21-32) 01/18/23 03:57 Anion Gap 4 (3-11) 01/18/23 03:57 BUN 11 mg/dl (6-23) 01/18/23 03:57 Creatinine 0.57 mg/dl (0.6-1.2) L 01/18/23 03:57 Est Cr Clr Drug Dosing 70.2 ml/min 01/18/23 03:57 Est GFR ( Amer) 102.9 ml/min 01/18/23 03:57 Est GFR (Non-Af Amer) 88.8 ml/min 01/18/23 03:57 BUN/Creatinine Ratio 19.3 (10-20) 01/18/23 03:57 Glucose 103 mg/dl (70-99(Fasting)) H 01/18/23 03:57 Calcium 8.1 mg/dl (8.6-10.3) L 01/18/23 03:57 Magnesium 1.9 mg/dl (1.7-2.4) 01/18/23 03:57 Total Bilirubin 0.8 mg/dl (0.2-1.0) 01/17/23 16:07 AST 19 U/L (13-39) 01/17/23 16:07 ALT 13 U/L (7-52) 01/17/23 16:07 Alkaline Phosphatase 38 U/L (34-104) 01/17/23 16:07 Total Protein 6.5 gm/dl (6.0-8.3) 01/17/23 16:07 Albumin 3.9 gm/dl (3.4-5.0) 01/17/23 16:07 Globulin 2.6 gm/dl (2.5-4.0) 01/17/23 16:07 Albumin/Globulin Ratio 1.5 (0.9-2) 01/17/23 16:07 Urine Color Yellow 01/17/23 16:58 Urine Appearance Clear (Clear) 01/17/23 16:58 Urine pH 6.5 (4.5-7.5) 01/17/23 16:58 Ur Specific [place] 1.011 (1.000-1.030) 01/17/23 16:58 Urine Protein Negative (Negative) 01/17/23 16:58 Urine Glucose (UA) Negative (Negative) 01/17/23 16:58 Urine Ketones 1+ (Negative) H 01/17/23 16:58 Urine Blood 2+ (Negative) H 01/17/23 16:58 Urine Nitrite Negative (Negative) 01/17/23 16:58 Urine Bilirubin Negative (Negative) 01/17/23 16:58 Urine Urobilinogen Negative (Negative) 01/17/23 16:58 Ur Leukocyte Esterase Negative (Negative) 01/17/23 16:58 Urine WBC (Auto) 1-5 /hpf (0-5) 01/17/23 16:58 Urine RBC (Auto) 10-30 /hpf (0-4) H 01/17/23 16:58 U Hyaline Cast (Auto) 1-5 /lpf (0-5) 01/17/23 16:58 U Epithel Cells (Auto) 10-20 /lpf (0-5) H 01/17/23 16:58 Urine Bacteria (Auto) Negative (Negative) 01/17/23 16:58 Blood Type A Positive 01/17/23 17:47 Antibody Screen NEGATIVE 01/17/23 17:47 Impressions Hip X-Ray 01/17/23 16:07 RIGHT HIP 2 VIEWS CLINICAL HISTORY: Fall. Right hip injury. FINDINGS: AP and crosstable lateral views of the right hip are compared to study dated 07/24/2022. The skeletal structures are osteopenic. There is a comminuted and mildly displaced intertrochanteric fracture of the right proximal femur with overlying soft tissue edema. The visualized right hemipelvis appears intact. Advanced arthritic change is noted in the right hip. There is degenerative sclerosis of the right sacroiliac joint and the pubic symphysis. IMPRESSION: Intertrochanteric fracture of the right proximal femur as above. Electronically signed by: Nicolás Hernandez M.D. 01/17/2023 5:02 PM Chest X-Ray 01/17/23 16:08 SINGLE VIEW CHEST CLINICAL HISTORY: Fall. Hip fracture. FINDINGS: An AP, portable, supine chest radiograph is compared to study dated 12/13/2022. The cardiomediastinal silhouette is unremarkable. Chronic interstitial thickening is similar to previous. The lungs and pleural spaces are clear. No pneumothorax is seen. The skeletal structures are osteopenic. The bony thorax is grossly intact. IMPRESSION: No acute cardiopulmonary abnormality. ACT 112: Negative or not required by law. Electronically signed by: Nicolás Hernandez M.D. 01/17/2023 5:01 PM (1) Fracture of right hip Encounter type: initial encounter Fracture type: closed Qualified Code(s): S72.001A - Fracture of unspecified part of neck of right femur, initial encounter for closed fracture
[2023-01-18] MEDS ORDERED: PANTOprazole 40 MG TAB PO SCH (09:00)
--- NOTE | 2023-01-18 09:49 | XRay Report ---
XR femur RT 2V routine HISTORY: 77 years-old Female r/o distal fx acute pain of the right thigh and hip COMPARISON: 01/17/2023 TECHNIQUE: 2 views of the right femur FINDINGS: Severe right hip osteoarthritis. There is unchanged alignment of the acute intertrochanteric fracture of the right femur. Mild adjacent soft tissue swelling. Demineralized appearance of the bones. No ad ditional acute fracture or dislocation identified. Osteoarthritis of the knee. IMPRESSION: Unchanged alignment of the acute intertrochanteric right femoral fracture. ACT 112: Negative or not required by law. The above report was generated using voice recognition software. It may contain grammatical, syntax o r spelling errors. Electronically signed by: Hardik Quintanilla M.D. 01/18/2023 9:48 AM
--- NOTE | 2023-01-18 12:05 | Hospitalist Progress Note ---
Date of Service January 18, 2023 Assessment & Plan (1) Fracture of right hip: Plan: Right hip fracture Patient underwent EGD/colonoscopy and upon preparing to leave fell while putting on her pants with immediate right hip pain -Found to have right intertrochanteric hip fracture -Orthopedics on consult, patient will require the OR for femoral nailing -Surgery scheduled later this afternoon (2) Fall: Plan: Mechanical fall (3) Hypokalemia: Plan: Potassium was 2.9 on admission Has been replaced. Repeat BMP (4) Chronic diarrhea: Plan: Diarrhea, chronic. Resolved Following GI as outpatient EGD 01/17/2023: Normal esophagus/stomach/duodenum Colonoscopy 01/18/2020: Nonbleeding hemorrhoids. C. difficile/fluid aspiration bacterial cultures taken. No other obvious abnormalities appreciated. C. difficile was negative, confirmed at time of admission Follow pending GI cultures, will keep on seizure precautions until this is resulted Plan DVT prophylaxis: SCDs Diet: N.p.o. pending surgical evaluation Disposition: Medical/surgical, PT OT consult. Patient will need rehab after surgery CODE STATUS Admission and Anticipated Discharge Date Admission Date: January 17, 2023 Review of Systems Review of Systems: All systems reviewed are negative, apart from the ones contained in the history. Physical Exam Physical Exam: The patient is awake, alert and oriented 3, well developed and well nourished, normocephalic and atraumatic, lying in bed and in no acute distress. HEENT--PERRL, EOMI, mucous membranes and oropharynx mildly dry Neck--supple. No JVD. No bruits. Thyroid normal, trachea midline, no adenopathy. Heart--normal S1 and S2. No murmurs, rubs or gallops. Lungs--clear bilaterally, no respiratory distress, no accessory muscle use. Abdomen--normal bowel sounds and soft. Mild epigastric and left sided abdominal pain Extremities--no cyanosis or clubbing. No edema. Dermatologic--normal skin turgor, normal color, no abnormal lymph nodes, no rash. Neurologic--cranial nerves II through XII grossly intact. Rheumatologic--normal range of motion. Psychiatric--normal affect. Results & Data Results & Data Vital Signs (Past 12 Hours) Vital Signs Temp Pulse Resp BP Pulse Ox O2 Del Method 01/18/23 07:17 97.7 F 90 16 112/66 97 Room Air PG Care Time/CCT Total # of Minutes Spent Total Time Spent with Patient: Total time spent is greater than 50% in coordination of care (as documented) at patient's floor/unit and/or counseling patient: Coding Level of Care Code 46530 SUB INP/OBS CARE 235MIN Diagnoses Fracture of right hip S72.001A Encounter type: initial encounter Fracture type: closed Fall W19.XXXA Encounter type: initial encounter Hypokalemia E87.6 Chronic diarrhea K52.9 Time Spent (min) 35 (1) Fracture of right hip Encounter type: initial encounter Fracture type: closed Qualified Code(s): S72.001A - Fracture of unspecified part of neck of right femur, initial encounter for closed fracture (2) Fall Encounter type: initial encounter Qualified Code(s): W19.XXXA - Unspecified fall, initial encounter
--- NOTE | 2023-01-18 12:26 | Anesthesiology Consultation ---
Date of Service January 18, 2023 Assessment & Plan Chart Review Chart Review: Acceptable Risk for Surgery, Patient NOT seen in Pre Admission Testing and Acceptable Risk for Labor Epidural Consults Requested none ASA ASA4 Proposed Anesthesia Anesthesia Type: General History Surgery Operation Date: 01/18/23 10:35 Proposed Procedures p Right Synthes Troch Nail - Valdo Joshua MD Height/Weight Height: 5 ft 4 in Weight: 57 kg Allergies Allergy/AdvReac Type Severity Reaction Status Date / Time Iodinated Contrast Media Allergy Intermediate Hives/Itchi Verified 01/17/23 13:26 ng Medications Home Medications Medication Instructions Recorded Confirmed Last Taken aspirin 81 mg tablet,delayed 81 mg PO HS 05/27/20 01/17/23 01/13/23 release bimatoprost 0.01 % eye drops 1 drp ophthalmic (eye) HS 05/27/20 01/17/23 01/16/23 (Lumigan) hydroxyurea 500 mg capsule 500 mg PO QAM 05/27/20 01/17/23 01/15/23 metoprolol succinate 25 mg 25 mg PO QAM 05/27/20 01/17/23 01/17/23 tablet,extended release 24 hr duloxetine 20 mg capsule,delayed 20 mg PO QPM 12/13/22 01/17/23 01/15/23 release doxycycline hyclate 100 mg capsule 100 mg PO BID 21 days #42 caps 12/30/22 01/17/23 01/16/23 Vitamin D3 500 mcg PO QAM 01/09/23 01/17/23 01/15/23 pantoprazole 40 mg tablet,delayed 40 mg PO QAM 01/17/23 01/17/23 Unknown release Active Medications Generic Name Dose Route Start Last Admin Trade Name Freq PRN Reason Stop Dose Admin Duloxetine HCl 20 mg 01/17/23 21:00 01/17/23 21:37 Duloxetine Hcl 20 Mg Cap PO 02/16/23 20:59 20 mg QPM MARGARITA Administration Hydromorphone HCl 0.5 mg 01/17/23 18:26 01/18/23 10:16 Hydromorphone Inj 0.5 Mg/0.5 Ml Syr IV 01/31/23 18:25 0.5 mg Q3H PRN Administration Pain, breakthrough Hydroxyurea 500 mg 01/18/23 09:00 01/18/23 07:57 Hydroxyurea 500 Mg Cap PO 02/17/23 08:59 500 mg QAM MARGARITA Administration Lactated Ringer's 1,000 mls @ 80 mls/hr 01/17/23 17:30 01/18/23 10:17 Lr IV 02/16/23 17:29 80 mls/hr .[id number] MARGARITA Infusion Acetaminophen 1,000 mg in 100 mls @ 400 mls/hr 01/17/23 18:26 01/17/23 19:23 Ofirmev IV 01/20/23 18:25 Infused Q8H PRN Infusion pain, first line Magnesium Oxide 400 mg 01/18/23 09:00 01/18/23 07:57 Magnesium Oxide 400 Mg Tab PO 02/17/23 08:59 400 mg QAM MARGARITA Administration Metoprolol Succinate 25 mg 01/18/23 09:00 01/18/23 07:57 Metoprolol Succ 25mg Ext Rel Tab PO 02/17/23 08:59 25 mg QAM MARGARITA Administration Pantoprazole Sodium 40 mg 01/18/23 09:00 01/18/23 07:57 Pantoprazole 40 Mg Tab PO 02/17/23 08:59 40 mg QAM MARGARITA Administration Past Medical History Medical History Arthritis in both knees and hands Gallstones NO PROBLEM WITH Hx of renal calculi passed on own Lyme disease dx 12/23/22, currently on doxycycline Polycythemia rubra vera Tachycardia REASON FOR METOPROLOL Varicose veins of both lower extremities ASCVD AO Exercise / Class Metabolic Activity III < 4 Walking/Shop/Light housework Past Family History Family History Sister Family history of diabetes mellitus Son Family history of diabetes mellitus Past Surgical History Surgical History History of colonoscopy History of esophagogastroduodenoscopy (EGD) History of hernia surgery X2 Hx of appendectomy done during hysterectomy Hx of bilateral cataract extraction Hx of tonsillectomy Hx of total hysterectomy with removal of both tubes and ovaries Past Anesthesia History No Hx of Anesthesia Complications and No Family Hx of Anesthesia Complications History of PONV No Hx of PONV and No Hx of Motion Sickness Social History Smoking Status: Never smoker Do You Dip or Chew Tobacco: No Hx Alcohol Use: No Hx Substance Use: No substance use type: does not use Physical Exam Vital Signs Last Vital Signs Temp 36.5 C 01/18/23 07:17 Pulse 90 01/18/23 07:17 Resp 16 01/18/23 07:17 BP 112/66 01/18/23 07:17 Pulse Ox 97 01/18/23 07:17 O2 Del Method Room Air 01/18/23 07:17 Testing Laboratory Results 01/17/23 16:07 01/18/23 03:57 PT 12.0 Seconds (9.0-12.0) 01/17/23 17:47 INR 1.1 (0.9-1.1) 01/17/23 17:47 APTT 27.9 Seconds (21.0-31.0) 01/17/23 17:47 Urine Color Yellow 01/17/23 16:58 Urine Appearance Clear (Clear) 01/17/23 16:58 Urine pH 6.5 (4.5-7.5) 01/17/23 16:58 Ur Specific [place] 1.011 (1.000-1.030) 01/17/23 16:58 Urine Protein Negative (Negative) 01/17/23 16:58 Urine Glucose (UA) Negative (Negative) 01/17/23 16:58 Urine Ketones 1+ (Negative) H 01/17/23 16:58 Urine Nitrite Negative (Negative) 01/17/23 16:58 Ur Leukocyte Esterase Negative (Negative) 01/17/23 16:58 Urine WBC (Auto) 1-5 /hpf (0-5) 01/17/23 16:58 Urine RBC (Auto) 10-30 /hpf (0-4) H 01/17/23 16:58 U Hyaline Cast (Auto) 1-5 /lpf (0-5) 01/17/23 16:58 U Epithel Cells (Auto) 10-20 /lpf (0-5) H 01/17/23 16:58 Urine Bacteria (Auto) Negative (Negative) 01/17/23 16:58 Blood Type A Positive 01/17/23 17:47 Antibody Screen NEGATIVE 01/17/23 17:47 Electrocardiogram Date: 01/17/23 Findings: + NSR @ (@ 75;? septal infarct,age ?) Chest X-Ray Date: 01/17/23 Findings: + NAD
[2023-01-18] MEDS ORDERED: fentaNYL citrate PF 100 MCG/2 ML VIAL ONE ×2 (13:37→16:23)
[2023-01-18] MEDS ORDERED: ceFAZolin 2,000 MG/15 ML IV PUSH IV ONE (14:30)
[2023-01-18] MEDS ORDERED: ceFAZolin 2000MG 2,000 MG/15 ML SYR IV ONE (14:30)
[2023-01-18] MEDS ORDERED: BUPIVACAINE 0.5 % 5 MG/1 ML MPF 30ML VIAL ONE (14:30)
[2023-01-18] MEDS ORDERED: ATROPINE SULFATE 0.1 MG/ML 10ML SYR IV PRN (14:45)
[2023-01-18] MEDS ORDERED: ONDANSETRON INJ 2 MG/ML 2 ML VIAL IV PRN (14:45)
[2023-01-18] MEDS ORDERED: LABETALOL HCL IV 5 MG/ML 20ML IV PRN (14:45)
[2023-01-18] MEDS ORDERED: PROMETHAZINE HCL 12.5 MG in SODIUM CHLORIDE 0.9% 50 ML IV PRN (14:45)
[2023-01-18] MEDS ORDERED: FLUMAZENIL 0.1 MG/1 ML 10 ML VIAL IV PRN (14:45)
[2023-01-18] MEDS ORDERED: NALOXONE HCL 0.4 MG/1 ML VIAL/CARP IV PRN (14:45)
[2023-01-18] MEDS ORDERED: ePHEDrine sulfate 50 MG/ML AMP IV PRN (14:45)
[2023-01-18] MEDS ORDERED: PROPOFOL IV EMULSION 10 MG/ML 20 ML VIAL IV ONE (14:49)
[2023-01-18] MEDS ORDERED: LIDOCAINE 2% 2 ML VIAL/AMP(20MG/ML) INFIL ONE (14:49)
[2023-01-18] MEDS ORDERED: CISATRACURIUM BESYLATE IV SOLN 2 MG/ML 10 ML VIAL IV ONE (14:49)
[2023-01-18] MEDS ORDERED: PHENYLEPHRINE 100MCG/ML 5ML SYR ONE (15:02)
[2023-01-18] MEDS ORDERED: PHENYLEPHRINE HCL 10 MG/ML VIAL ONE (15:27)
[2023-01-18] MEDS ORDERED: HYDROmorphone INJ 0.5 MG/0.5 ML SYR IV PRN (16:33)
--- NOTE | 2023-01-18 16:58 | Post Operative Brief Note ---
Immediate Post Op Note v1 Date of Surgery January 18, 2023 Pre & Post Diagnosis Operation Date: 01/18/23 10:35 Pre-Op Diagnosis: Right Hip Fracture Post-Op Diagnosis: Right Hip Fracture I identified the patient and participated in the time-out.: Yes Procedure Operation Date: 01/18/23 10:35 Actual Procedures p Right Synthes Troch Nail(Right) - Valdo Joshua MD Surgeon Valdo Joshua MD Wire Drawing Machine Tender Inessa Galvan PA-C Estimated Blood Loss 50 Findings Consistent with Post-Op Diagnosis Intertrochanteric fracture Anesthesia Type General
[2023-01-18] MEDS: fentaNYL citrate PF 100 MCG/2 ML VIAL IV PRN ×2 (17:02→17:07)
--- NOTE | 2023-01-18 17:06 | Fluoroscopy Report ---
FL hip RT 2-3V CLINICAL HISTORY: RIGHT TROCH NAIL COMPARISON STUDY: Radiographs of same day FLUOROSCOPY TIME: 157.9 FLUOROSCOPY IMAGES: 7 EXPOSURE DOSE: 24.25 mGy FINDINGS: Acute intertrochanteric right femoral fracture. Status post placement of an intertrochanter ic nail with medullary sai. There is improved alignment. Expected postoperative soft tissue swelling and deep tissue air. IMPRESSION: Fluoroscopic assistance as above. ACT 112: Negative or not required by law. Electronically signed by: Hardik Quintanilla M.D. 01/18/2023 5:04 PM
--- NOTE | 2023-01-18 17:17 | Anesthesiology Progress Note ---
Date of Service January 18, 2023 Anesthesia Post Procedure Vital Signs Vital Signs: Temp Pulse Pulse Pulse Resp BP BP 01/18/23 17:05 65 18 165/73 H 01/18/23 16:55 72 18 160/87 H 01/18/23 16:45 78 16 157/72 H 01/18/23 16:39 36.8 C 62 14 178/84 H 01/18/23 13:25 36.7 C 90 20 01/18/23 07:17 36.5 C 90 16 01/17/23 21:40 01/17/23 20:19 36.6 C 87 18 01/17/23 19:40 95 H 23 01/17/23 19:30 84 23 01/17/23 19:20 88 20 01/17/23 19:10 84 23 01/17/23 19:00 85 22 01/17/23 19:00 150/102 H 01/17/23 18:50 93 H 20 01/17/23 18:40 84 15 01/17/23 18:30 83 22 01/17/23 18:30 150/80 H 01/17/23 18:20 86 20 01/17/23 18:10 82 15 01/17/23 18:00 92 H 20 01/17/23 18:00 157/78 H 01/17/23 17:50 83 13 01/17/23 17:40 88 24 01/17/23 17:30 155/105 H 01/17/23 17:30 85 18 01/17/23 17:20 84 17 BP Pulse Ox O2 Del Method O2 Flow Rate 01/18/23 17:05 99 Room Air 01/18/23 16:55 100 Room Air 01/18/23 16:45 100 Room Air 01/18/23 16:39 100 Oxymask 4 01/18/23 13:25 136/72 99 Room Air 01/18/23 07:17 112/66 97 Room Air 01/17/23 21:40 Room Air 01/17/23 20:19 148/75 H 95 Room Air 01/17/23 19:40 01/17/23 19:30 01/17/23 19:20 01/17/23 19:10 01/17/23 19:00 01/17/23 19:00 01/17/23 18:50 01/17/23 18:40 01/17/23 18:30 01/17/23 18:30 01/17/23 18:20 01/17/23 18:10 01/17/23 18:00 01/17/23 18:00 01/17/23 17:50 01/17/23 17:40 01/17/23 17:30 01/17/23 17:30 01/17/23 17:20 Pain Intensity Right Hip: Pain Intensity: 5 Transfer of Care Handoff Completed per policy Notes Mental Status: alert / awake / arousable Patient Amnestic to Procedure: Yes Nausea / Vomiting: adequately controlled Pain: adequately controlled Airway Patency, RR, SpO2: stable & adequate BP & HR: stable & adequate Hydration State: stable & adequate Anesthetic Complications: no major complications apparent
[2023-01-18] MEDS: ACETAMINOPHEN 1,000 MG/100 ML VIAL IV PRN (18:08)
[2023-01-18] MEDS: SODIUM CHLORIDE 0.9% 1000ML 1,000 ML IV SCH (18:08)
--- NOTE | 2023-01-18 18:54 | Operative Report ---
Post Operative Report Pre & Post Diagnosis Operation Date: 01/18/23 10:35 Pre-Op Diagnosis: Right Hip Fracture Post-Op Diagnosis: Right Hip Fracture I identified the patient and participated in the time-out.: Yes Procedure Operation Date: 01/18/23 10:35 Actual Procedures p Right intertrochanteric hip nail(Right) - Valdo Joshua MD Surgeon Valdo Joshua MD Office Agent Inessa Galvan PA-C Estimated Blood Loss 50 Findings Consistent with Post-Op Diagnosis Displaced intertrochanteric fracture. Fracture was stable after fixation Specimens None Indications This is a 75-year-old female who who sustained an intertrochanteric fracture she presents for intramedullary nail. I saw the patient in the preoperative holding area we discussed risk benefits reasonable outcomes and expectations. The risks and benefits have been discussed including, but not limited to, risk of infection, nerve injury, stiffness, loss of motion, failure to improve, etc. Reasonable outcomes and options of treatment were discussed. An explanation of appropriate alternatives to the procedure that may be advantageous were discussed and their risks and benefits, as well as the risks and benefits of not proceeding with treatment. I offered to answer any additional inquiries concerning the treatment involved. All the patient's questions were answered. The patient is agreeable, understanding of the treatment plan and alternatives, and wishes to proceed with the treatment plan. Description of Procedure Patient was placed on fracture table and longitudinal traction was applied. This resulted in good reduction under C arm fluoroscopy. I made a longitudinal incision of the tip of the trochanter and extended this proximally. Dissection was carried down through the skin and subcutaneous tissues the fascial layer was sharply incised and identify the tip of the trochanter with blunt dissection. I then placed the guidewire for the Synthes advanced TFN nail onto the tip of the trochanter and I drilled this into the intramedullary canal. I then overdrilled and placed a ball-tipped guidewire. I selected a size 11 Synthes nail, short. I gently placed this over the guidewire and tapped this down to the appropriate position. I then made a second incision for the cannulated blade and incised the fascia. I dissected down to bone. I placed the guide for the cannulated drill and I placed the guidewire into the central aspect of the head of the femur creating a good tip to apex distance. I then overdrilled and selected a size 90 blade this was placed and showed good alignment and stability. I compressed the fracture slightly. Made an additional incision more distally and placed the interlock screw which was verified under C-arm fluoroscopy to be in good position. Final C-arm radiographs confirmed good alignment. Incisions wer e irrigated fascial layers closed 2-0 Vicryl in the subcutaneous layer was closed with 2-0 Vicryl as well. The skin was closed with ever and soft dressings were applied Postoperative plan will be toe-touch weightbearing with walker, aspirin 81 mg twice daily for DVT prophylaxis. I attest to the content of the Intraoperative Record and any orders documented therein. Any exceptions are noted below.
[2023-01-18] MEDS: BIMATOPROST 0.01% OP SOLN 2.5 ML BTL OP SCH (20:24)
[2023-01-18] MEDS: ASPIRIN 81 MG ECTAB PO SCH (20:25)
[2023-01-18] MEDS: DULoxetine HCL 20 MG CAP PO SCH (20:26)
[2023-01-18] MEDS: DOCUSATE SODIUM/SENNA 50/8.6MG TAB PO SCH (20:32)
[2023-01-18] MEDS: ceFAZolin 1000MG 1,000 MG/7.5 ML SYR IV SCH (22:42)
--- NOTE | 2023-01-18 23:01 | Electrocardiogram Report ---
Test Reason : Blood Pressure : / mmHG Vent. Rate : 075 BPM Atrial Rate : 075 BPM P-R Int : 158 ms QRS Dur : 078 ms QT Int : 392 ms P-R-T Axes : 067 069 056 degrees QTc Int : 437 ms Normal sinus rhythm Septal infarct (cited on or before 13-DEC-2022) Abnormal ECG When compared with ECG of 13-DEC-2022 11:44, No significant change was found Confirmed by Jus Loco ([id number]) on 01/18/2023 11:01:09 PM Referred By: Confirmed By:Jus Loco
[2023-01-19] MEDS: SODIUM CHLORIDE 0.9% 1000ML 1,000 ML IV SCH (03:12)
[2023-01-19] MEDS: ceFAZolin 1000MG 1,000 MG/7.5 ML SYR IV SCH (06:12)
--- NOTE | 2023-01-19 06:13 | Orthopedic Progress Note ---
Date of Service January 19, 2023 Assessment & Plan (1) Fracture of right hip: Plan: POD #1 s/p Right intertrochanteric hip nail PT/OT- TTWB with crutches DVT proph chetan/scd/asa will likely need rehab placement, CM consult placed currently on liquid diet, she can advance per recommendations from primary team Admission and Anticipated Discharge Date Admission Date: January 17, 2023 Subjective POD #1 s/p Right intertrochanteric hip nail Review of Systems Constitutional: no fever and no chills Respiratory: no cough and no dyspnea Cardiovascular: no chest pain, no dyspnea and no orthopnea Gastrointestinal: no abdominal pain, no nausea and no vomiting Physical Exam Physical Exam: Vital Signs Temp 36.7 C 01/19/23 05:48 Pulse 90 01/19/23 05:48 Resp 18 01/19/23 05:48 BP 119/70 01/19/23 05:48 Pulse Ox 99 01/19/23 05:48 O2 Del Method Room Air 01/19/23 05:48 O2 Flow Rate 4 01/18/23 16:39 Intake & Output 01/18/23 01/18/23 01/19/23 06:59 18:59 06:59 Intake Total 1700 / 1700 2120.000 / 3120.00 0 1000.000 / 3120.00 0 Output Total 800 / 800 1025 / 1925 900 / 1925 Balance 900 / 900 1095.000 / 1195.00 0 100.000 / 1195.000 Weight 57 kg 49.4 kg Intake: IV 1700 / 1700 720.000 / 4862.189 8113.000 / 1720.00 0 Acetaminophen 1,000 mg In 100 100 / 100 100 / 100 ml @ 400 mls/h r IV Q8H PRN Rx#: [id number] Lactated Ringe r's 1,000 ml @ 80 1000 / 1000 620.000 / 620.000 mls/hr IV .Q12 H30M MARGARITA Rx#: [id number] Magnesium Sulf ate / D5w 1 gm In 200 / 200 100 ml @ 50 ml s/hr IV Q2H MARGARITA Rx#:[id number] Potassium Chlo ride / Wtr 10 meq 400 / 400 In 100 ml @ 10 0 mls/hr IV Q1H MARGARITA Rx#:[id number] Sodium Chlorid e 0.9% 1000ML 1, 1000.000 / 1000.00 0 000 ml @ 125 m ls/hr IV .Q8H [facility] Rx#:[id number] IV Perioperative 1400 / 1400 Output: Estimated Blood Loss 50 / 50 Urine Amount (Ca theter) 800 / 800 975 / 1875 900 / 1875 Hale/Indwelli ng 800 / 800 975 / 1875 900 / 1875 Other: Weight Measureme nt Method [facility] Constitutional: WD/WN, vitals as above Musculoskeletal: Right hip: dressing clean and dry, thigh soft, non-tender. calf also soft, non- tender. DP +2. Results & Data Vital Signs (Past 12 Hours) Vital Signs Temp Pulse Resp BP Pulse Ox Pulse Ox O2 Del Method 01/19/23 05:48 36.7 C 90 18 119/70 99 Room Air 01/19/23 03:16 36.7 C 88 18 112/65 98 Room Air 01/19/23 02:22 96 01/18/23 23:35 36.6 C 88 14 107/65 98 Room Air 01/18/23 20:20 Room Air 01/18/23 20:20 96 01/18/23 21:42 36.6 C 90 18 84/51 L 96 Room Air 01/18/23 20:42 36.6 C 83 18 99/63 L 97 Room Air 01/18/23 19:42 36.6 C 83 18 104/64 96 Room Air 01/18/23 18:39 84 H 112/68 97 Room Air 01/18/23 18:15 88 16 116/75 95 Room Air O2 Del Method 01/19/23 05:48 01/19/23 03:16 01/19/23 02:22 Room Air 01/18/23 23:35 01/18/23 20:20 01/18/23 20:20 Room Air 01/18/23 21:42 01/18/23 20:42 01/18/23 19:42 01/18/23 18:39 01/18/23 18:15 Laboratory Results Laboratory Results WBC 5.34 K/ul (4.8-10.8) 01/17/23 16:07 RBC 3.57 M/uL (4.20-5.40) L 01/17/23 16:07 Hgb 13.1 g/dl (12.0-16.0) 01/17/23 16:07 Hct 38.2 % (37.0-47.0) 01/17/23 16:07 MCV 107.0 fL (80.0-100.0) H 01/17/23 16:07 MCH 36.7 pg (25.0-34.0) H 01/17/23 16:07 MCHC 34.3 g/dL (32.0-36.0) 01/17/23 16:07 RDW Std Deviation 63.1 fL (36.4-46.3) H 01/17/23 16:07 RDW Coeff of Zehra 15.7 % (11.5-14.5) H 01/17/23 16:07 Plt Count 347 K/uL (130-400) 01/17/23 16:07 MPV 10.2 fL (9.4-12.4) 01/17/23 16:07 Immature Gran % (Auto) 0.2 % 01/17/23 16:07 Neut % (Auto) 59.9 % 01/17/23 16:07 Lymph % (Auto) 27.9 % 01/17/23 16:07 Garrard % (Auto) 7.7 % 01/17/23 16:07 Eos % (Auto) 3.2 % 01/17/23 16:07 Baso % (Auto) 1.1 % 01/17/23 16:07 Neut # (Auto) 3.20 K/uL (1.40-6.50) 01/17/23 16:07 Lymph # (Auto) 1.49 K/uL (1.2-3.4) 01/17/23 16:07 [place]arrard # (Auto) 0.41 K/uL (0.11-0.59) 01/17/23 16:07 Eos # (Auto) 0.17 K/uL (0-0.50) 01/17/23 16:07 Baso # (Auto) 0.06 K/uL (0-0.2) 01/17/23 16:07 Immature Gran # (Auto) 0.01 K/uL (0.01-0.20) 01/17/23 16:07 PT 12.0 Seconds (9.0-12.0) 01/17/23 17:47 INR 1.1 (0.9-1.1) 01/17/23 17:47 APTT 27.9 Seconds (21.0-31.0) 01/17/23 17:47 PTT Ratio 1.0 01/17/23 17:47 Sodium 130 mmol/L (136-145) L 01/18/23 03:57 Potassium 4.2 mmol/L (3.5-5.1) 01/18/23 03:57 Chloride 100 mmol/L (98-107) 01/18/23 03:57 Carbon Dioxide 26 mmol/L (21-32) 01/18/23 03:57 Anion Gap 4 (3-11) 01/18/23 03:57 BUN 11 mg/dl (6-23) 01/18/23 03:57 Creatinine 0.57 mg/dl (0.6-1.2) L 01/18/23 03:57 Est Cr Clr Drug Dosing 70.2 ml/min 01/18/23 03:57 Est GFR ( Amer) 102.9 ml/min 01/18/23 03:57 Est GFR (Non-Af Amer) 88.8 ml/min 01/18/23 03:57 BUN/Creatinine Ratio 19.3 (10-20) 01/18/23 03:57 Glucose 103 mg/dl (70-99(Fasting)) H 01/18/23 03:57 Calcium 8.1 mg/dl (8.6-10.3) L 01/18/23 03:57 Magnesium 1.9 mg/dl (1.7-2.4) 01/18/23 03:57 Total Bilirubin 0.8 mg/dl (0.2-1.0) 01/17/23 16:07 AST 19 U/L (13-39) 01/17/23 16:07 ALT 13 U/L (7-52) 01/17/23 16:07 Alkaline Phosphatase 38 U/L (34-104) 01/17/23 16:07 Total Protein 6.5 gm/dl (6.0-8.3) 01/17/23 16:07 Albumin 3.9 gm/dl (3.4-5.0) 01/17/23 16:07 Globulin 2.6 gm/dl (2.5-4.0) 01/17/23 16:07 Albumin/Globulin Ratio 1.5 (0.9-2) 01/17/23 16:07 Urine Color Yellow 01/17/23 16:58 Urine Appearance Clear (Clear) 01/17/23 16:58 Urine pH 6.5 (4.5-7.5) 01/17/23 16:58 Ur Specific [place] 1.011 (1.000-1.030) 01/17/23 16:58 Urine Protein Negative (Negative) 01/17/23 16:58 Urine Glucose (UA) Negative (Negative) 01/17/23 16:58 Urine Ketones 1+ (Negative) H 01/17/23 16:58 Urine Blood 2+ (Negative) H 01/17/23 16:58 Urine Nitrite Negative (Negative) 01/17/23 16:58 Urine Bilirubin Negative (Negative) 01/17/23 16:58 Urine Urobilinogen Negative (Negative) 01/17/23 16:58 Ur Leukocyte Esterase Negative (Negative) 01/17/23 16:58 Urine WBC (Auto) 1-5 /hpf (0-5) 01/17/23 16:58 Urine RBC (Auto) 10-30 /hpf (0-4) H 01/17/23 16:58 U Hyaline Cast (Auto) 1-5 /lpf (0-5) 01/17/23 16:58 U Epithel Cells (Auto) 10-20 /lpf (0-5) H 01/17/23 16:58 Urine Bacteria (Auto) Negative (Negative) 01/17/23 16:58 Blood Type A Positive 01/17/23 17:47 Antibody Screen NEGATIVE 01/17/23 17:47 Impressions Chest X-Ray 01/17/23 16:08 SINGLE VIEW CHEST CLINICAL HISTORY: Fall. Hip fracture. FINDINGS: An AP, portable, supine chest radiograph is compared to study dated 12/13/2022. The cardiomediastinal silhouette is unremarkable. Chronic interstitial thickening is similar to previous. The lungs and pleural spaces are clear. No pneumothorax is seen. The skeletal structures are osteopenic. The bony thorax is grossly intact. IMPRESSION: No acute cardiopulmonary abnormality. ACT 112: Negative or not required by law. Electronically signed by: Nicolás Hernandez M.D. 01/17/2023 5:01 PM Femur X-Ray 08/04/23 08:29 XR femur RT 2V routine HISTORY: 77 years-old Female r/o distal fx acute pain of the right thigh and hip COMPARISON: 01/17/2023 TECHNIQUE: 2 views of the right femur FINDINGS: Severe right hip osteoarthritis. There is unchanged alignment of the acute intertrochanteric fracture of the right femur. Mild adjacent soft tissue swelling. Demineralized appearance of the bones. No additional acute fracture or dislocation identified. Osteoarthritis of the knee. IMPRESSION: Unchanged alignment of the acute intertrochanteric right femoral fracture. ACT 112: Negative or not required by law. The above report was generated using voice recognition software. It may contain grammatical, syntax or spelling errors. Electronically signed by: Hardik Quintanilla M.D. 01/18/2023 9:48 AM Hip X-Ray 01/18/23 14:40 FL hip RT 2-3V CLINICAL HISTORY: RIGHT TROCH NAIL COMPARISON STUDY: Radiographs of same day FLUOROSCOPY TIME: 157.9 FLUOROSCOPY IMAGES: 7 EXPOSURE DOSE: 24.25 mGy FINDINGS: Acute intertrochanteric right femoral fracture. Status post placement of an intertrochanteric nail with medullary sai. There is improved alignment. Expected postoperative soft tissue swelling and deep tissue air. IMPRESSION: Fluoroscopic assistance as above. ACT 112: Negative or not required by law. Electronically signed by: Hardik Quintanilla M.D. 01/18/2023 5:04 PM (1) Fracture of right hip Encounter type: initial encounter Fracture type: closed Qualified Code(s): S72.001A - Fracture of unspecified part of neck of right femur, initial encounter for closed fracture
[2023-01-19 06:24] LABS: BUN Creatinine Ratio 18.3 (10-20); Calcium 7.9 mg/dl (8.6-10.3); Creatinine Clr Calc Pharmacy 60.3 ml/min; Est GFR (African American) 101.2 ml/min; Est GFR (Non-African American) 87.3 ml/min; Potassium 3.7 mmol/L (3.5-5.1)
[2023-01-19 06:59] LABS: Basophils # (auto) 0.01 K/uL (0-0.2); Basophils % (auto) 0.2 %; Eosinophils # (auto) 0.05 K/uL (0-0.50); Eosinophils % (auto) 1.2 %; Hematocrit (blood only) 24.3 % (37.0-47.0); Hemoglobin 8.6 g/dl (12.0-16.0); Immature Granulocytes # (auto) 0.02 K/uL (0.01-0.20); Immature Granulocytes % (auto) 0.5 %; Lymphocytes # (auto) 0.64 K/uL (1.2-3.4); Lymphocytes % (auto) 14.9 %; Mean Corpuscular Hemoglobin 36.4 pg (25.0-34.0); Mean Corpuscular Hgb Conc 35.4 g/dL (32.0-36.0); Mean Platelet Volume 10.3 fL (9.4-12.4); Monocytes # (auto) 0.41 K/uL (0.11-0.59); Monocytes % (auto) 9.6 %; Neutrophils # (auto) 3.16 K/uL (1.40-6.50); Neutrophils % (auto) 73.6 %; Platelet Count 218 K/uL (130-400); RDW Coefficient of Variation 14.8 % (11.5-14.5); RDW Standard Deviation 55.8 fL (36.4-46.3); Red Blood Count 2.36 M/uL (4.20-5.40); White Blood Count 4.29 K/ul (4.8-10.8)
[2023-01-19] MEDS: METOPROLOL SUCC 25MG EXT REL TAB PO SCH (08:34)
[2023-01-19] MEDS: ASPIRIN 81 MG ECTAB PO SCH ×2 (08:36→20:39)
[2023-01-19] MEDS: HYDROXYUREA 500 MG CAP PO SCH (08:36)
[2023-01-19] MEDS: oxyCODONE HCL IR 5 MG TAB (IMMEDIATE RELEASE) PO PRN ×3 (08:36→18:37)
[2023-01-19] MEDS: MAGNESIUM OXIDE 400 MG TAB PO SCH (08:36)
[2023-01-19] MEDS: CHOLECALCIFEROL 5,000 UNITS 125 MCG TAB PO SCH (08:36)
--- NOTE | 2023-01-19 14:35 | Hospitalist Progress Note ---
Date of Service January 19, 2023 Assessment & Plan (1) Fracture of right hip: Plan: Right hip fracture Patient underwent EGD/colonoscopy and upon preparing to leave fell while putting on her pants with immediate right hip pain - Found to have right intertrochanteric hip fracture - S/p R intertrochanteric hip intramedullary nail on 01/18 - Normal Vit D at 61 - Monitor post-op anemia - ADAT - Recommend bah removal prior to discharge and voiding trial - Pain and DVT ppx deferred to ortho (2) Fall: Plan: Mechanical fall (3) Hypokalemia: Plan: Potassium was 2.9 on admission Has been replaced and resolved Monitor BMP (4) Chronic diarrhea: Plan: Diarrhea, chronic. Resolved Following GI as outpatient EGD 01/17/2023: Normal esophagus/stomach/duodenum Colonoscopy 01/18/2020: Nonbleeding hemorrhoids. C. difficile/fluid aspiration bacterial cultures taken. No other obvious abnormalities appreciated. C. difficile was negative, confirmed at time of admission Follow pending GI cultures, will keep on seizure precautions until this is resulted (5) Postoperative anemia: Plan: Trend CBC, transfuse if Hgb <7 (6) Hyponatremia: Plan: Chronic, continue monitoring for now would defer to further outpatient eval Plan DVT prophylaxis: SCDs, deferred to ortho Diet: ADAT Disposition: Medical/surgical, PT OT consult. Patient will need rehab after surgery CODE STATUS Admission and Anticipated Discharge Date Admission Date: January 17, 2023 Subjective Doing well overall. Pain is adequately controlledstill has some discomfort in her right hip. Has not yet moved her bowels, but notes she recently had a colonoscopy prep and has not had much food since then. Still has Bah in place without concerns with that. Denies any lightheadedness or dizziness, chest pain, shortness of breath. Tolerating liquid diet well Physical Exam Physical Exam: General: Well-appearing, NAD Cardiovascular: RRR Pulmonary: CTAB, no W/R/R Abdomen: Soft, NT/ND, no guarding, bah in place draining clear yellow urine Extremities: R hip with overlying bandage C/D/I Neurologic: AAOx3, no focal deficits Psychiatric: Appropriate mood/affect Results & Data Results & Data Vital Signs (Past 12 Hours) Vital Signs Temp Pulse Resp BP BP Pulse Ox Pulse Ox 08/05/23 08:32 98 H 95/58 L 01/19/23 06:17 96 01/19/23 05:48 36.7 C 90 18 119/70 99 01/19/23 03:16 36.7 C 88 18 112/65 98 O2 Del Method O2 Del Method 01/19/23 08:32 01/19/23 06:17 Room Air 01/19/23 05:48 Room Air 01/19/23 03:16 Room Air Laboratory Results Note hemoglobin low to 8.6, sodium low to 128, normal creatinine, normal potassium, low calcium, vitamin D normal PG Care Time/CCT Total # of Minutes Spent Total Time Spent with Patient: Total time spent is greater than 50% in coordination of care (as documented) at patient's floor/unit and/or counseling patient: Coding Level of Care Code 53643 SUB INP/OBS CARE 235MIN Diagnoses Fracture of right hip S72.001A Encounter type: initial encounter Fracture type: closed Fall W19.XXXA Encounter type: initial encounter Hypokalemia E87.6 Chronic diarrhea K52.9 Postoperative anemia D64.9 Hyponatremia E87.1 (1) Fracture of right hip Encounter type: initial encounter Fracture type: closed Qualified Code(s): S72.001A - Fracture of unspecified part of neck of right femur, initial encounter for closed fracture (2) Fall Encounter type: initial encounter Qualified Code(s): W19.XXXA - Unspecified fall, initial encounter
[2023-01-19] MEDS: BIMATOPROST 0.01% OP SOLN 2.5 ML BTL OP SCH (20:39)
[2023-01-19] MEDS: DULoxetine HCL 20 MG CAP PO SCH (20:40)
[2023-01-19] MEDS: DOCUSATE SODIUM/SENNA 50/8.6MG TAB PO SCH (20:45)
--- NOTE | 2023-01-20 06:06 | Orthopedic Progress Note ---
Date of Service January 20, 2023 Assessment & Plan (1) Fracture of right hip: Plan: POD #2 s/p Right intertrochanteric hip nail PT/OT- TTWB with crutches DVT proph chetan/scd/asa plan for rehab post discharge will need f/u with Dr Joshua team in 12-14 days, for appt Ortho will sign off, please contact with any questions or concerns. d/c instructions placed in patients chart Admission and Anticipated Discharge Date Admission Date: January 17, 2023 Subjective POD #2 Review of Systems Constitutional: no fever and no chills Respiratory: no cough and no dyspnea Cardiovascular: no chest pain, no dyspnea and no orthopnea Gastrointestinal: no abdominal pain, no nausea and no vomiting Physical Exam Physical Exam: Vital Signs Temp Pulse Resp BP BP Pulse Ox Pulse Ox 01/20/23 05:49 36.7 C 90 18 110/67 98 01/20/23 01:59 98 01/19/23 20:35 01/19/23 20:35 98 01/19/23 21:32 37.2 C 101 H 18 117/74 98 01/19/23 14:39 36.9 C 97 H 16 126/76 97 01/19/23 08:32 98 H 95/58 L 01/19/23 06:17 96 O2 Del Method O2 Del Method 01/20/23 05:49 Room Air 01/20/23 01:59 Room Air 01/19/23 20:35 Room Air 01/19/23 20:35 Room Air 01/19/23 21:32 Room Air 01/19/23 14:39 Room Air 01/19/23 08:32 01/19/23 06:17 Room Air Intake and Output 01/19/23 01/19/23 01/20/23 14:59 22:59 06:59 Intake Total 1339.167 / 1339.16 7 Output Total 300 / 1400 600 / 1400 500 / 1400 Balance 1039.167 / -60.833 -600 / -60.833 -500 / -60.833 Intake: IV 979.167 / 979.167 Sodium Chlorid e 0.9% 1000ML 1, 979.167 / 979.167 000 ml @ 125 m ls/hr IV .Q8H MARGARITA Rx#:[id number] Oral 360 / 360 Output: Urine Amount (Ca theter) 300 / 1400 600 / 1400 500 / 1400 Hale/Indwelli ng 300 / 1400 600 / 1400 500 / 1400 Constitutional: WD/WN, vitals as above Musculoskeletal: Right Hip: dressing clean and dry, thigh soft and non tender. DP +2. calf soft non tender. Results & Data Vital Signs (Past 12 Hours) Vital Signs Temp Pulse Resp BP Pulse Ox Pulse Ox O2 Del Method 01/20/23 05:49 36.7 C 90 18 110/67 98 Room Air 01/20/23 01:59 98 01/19/23 20:35 Room Air 01/19/23 20:35 98 01/19/23 21:32 37.2 C 101 H 18 117/74 98 Room Air O2 Del Method 01/20/23 05:49 01/20/23 01:59 Room Air 01/19/23 20:35 01/19/23 20:35 Room Air 01/19/23 21:32 Laboratory Results Laboratory Results WBC 4.29 K/ul (4.8-10.8) L 01/19/23 05:21 RBC 2.36 M/uL (4.20-5.40) L 01/19/23 05:21 Hgb 8.6 g/dl (12.0-16.0) L D 01/19/23 05:21 Hct 24.3 % (37.0-47.0) L 01/19/23 05:21 MCV 103.0 fL (80.0-100.0) H 01/19/23 05:21 MCH 36.4 pg (25.0-34.0) H 01/19/23 05:21 MCHC 35.4 g/dL (32.0-36.0) 01/19/23 05:21 RDW Std Deviation 55.8 fL (36.4-46.3) H 01/19/23 05:21 RDW Coeff of Zehra 14.8 % (11.5-14.5) H 01/19/23 05:21 Plt Count 218 K/uL (130-400) 01/19/23 05:21 MPV 10.3 fL (9.4-12.4) 01/19/23 05:21 Immature Gran % (Auto) 0.5 % 01/19/23 05:21 Neut % (Auto) 73.6 % 01/19/23 05:21 Lymph % (Auto) 14.9 % 01/19/23 05:21 Nicholas % (Auto) 9.6 % 01/19/23 05:21 Eos % (Auto) 1.2 % 01/19/23 05:21 Baso % (Auto) 0.2 % 01/19/23 05:21 Neut # (Auto) 3.16 K/uL (1.40-6.50) 01/19/23 05:21 Lymph # (Auto) 0.64 K/uL (1.2-3.4) L 01/19/23 05:21 Nicholas # (Auto) 0.41 K/uL (0.11-0.59) 01/19/23 05:21 Eos # (Auto) 0.05 K/uL (0-0.50) 01/19/23 05:21 Baso # (Auto) 0.01 K/uL (0-0.2) 01/19/23 05:21 Immature Gran # (Auto) 0.02 K/uL (0.01-0.20) 01/19/23 05:21 PT 12.0 Seconds (9.0-12.0) 01/17/23 17:47 INR 1.1 (0.9-1.1) 01/17/23 17:47 APTT 27.9 Seconds (21.0-31.0) 01/17/23 17:47 PTT Ratio 1.0 01/17/23 17:47 Sodium 128 mmol/L (136-145) L 01/19/23 05:21 Potassium 3.7 mmol/L (3.5-5.1) 01/19/23 05:21 Chloride 99 mmol/L (98-107) 01/19/23 05:21 Carbon Dioxide 26 mmol/L (21-32) 01/19/23 05:21 Anion Gap 3 (3-11) 01/19/23 05:21 BUN 11 mg/dl (6-23) 01/19/23 05:21 Creatinine 0.60 mg/dl (0.6-1.2) 01/19/23 05:21 Est Cr Clr Drug Dosing 60.3 ml/min 01/19/23 05:21 Est GFR ( Amer) 101.2 ml/min 01/19/23 05:21 Est GFR (Non-Af Amer) 87.3 ml/min 01/19/23 05:21 BUN/Creatinine Ratio 18.3 (10-20) 01/19/23 05:21 Glucose 97 mg/dl (70-99(Fasting)) 01/19/23 05:21 Calcium 7.9 mg/dl (8.6-10.3) L 01/19/23 05:21 Magnesium 1.9 mg/dl (1.7-2.4) 01/18/23 03:57 Total Bilirubin 0.8 mg/dl (0.2-1.0) 01/17/23 16:07 AST 19 U/L (13-39) 01/17/23 16:07 ALT 13 U/L (7-52) 01/17/23 16:07 Alkaline Phosphatase 38 U/L (34-104) 01/17/23 16:07 Total Protein 6.5 gm/dl (6.0-8.3) 01/17/23 16:07 Albumin 3.9 gm/dl (3.4-5.0) 01/17/23 16:07 Globulin 2.6 gm/dl (2.5-4.0) 01/17/23 16:07 Albumin/Globulin Ratio 1.5 (0.9-2) 01/17/23 16:07 25-OH Vitamin D Total 61.0 ng/ml (30-100) 01/19/23 05:21 Urine Color Yellow 01/17/23 16:58 Urine Appearance Clear (Clear) 01/17/23 16:58 Urine pH 6.5 (4.5-7.5) 01/17/23 16:58 Ur Specific [place] 1.011 (1.000-1.030) 01/17/23 16:58 Urine Protein Negative (Negative) 01/17/23 16:58 Urine Glucose (UA) Negative (Negative) 01/17/23 16:58 Urine Ketones 1+ (Negative) H 01/17/23 16:58 Urine Blood 2+ (Negative) H 01/17/23 16:58 Urine Nitrite Negative (Negative) 01/17/23 16:58 Urine Bilirubin Negative (Negative) 01/17/23 16:58 Urine Urobilinogen Negative (Negative) 01/17/23 16:58 Ur Leukocyte Esterase Negative (Negative) 01/17/23 16:58 Urine WBC (Auto) 1-5 /hpf (0-5) 01/17/23 16:58 Urine RBC (Auto) 10-30 /hpf (0-4) H 01/17/23 16:58 U Hyaline Cast (Auto) 1-5 /lpf (0-5) 01/17/23 16:58 U Epithel Cells (Auto) 10-20 /lpf (0-5) H 01/17/23 16:58 Urine Bacteria (Auto) Negative (Negative) 01/17/23 16:58 Blood Type A Positive 01/17/23 17:47 Antibody Screen NEGATIVE 01/17/23 17:47 Impressions Chest X-Ray 01/17/23 16:08 SINGLE VIEW CHEST CLINICAL HISTORY: Fall. Hip fracture. FINDINGS: An AP, portable, supine chest radiograph is compared to study dated 12/13/2022. The cardiomediastinal silhouette is unremarkable. Chronic interstitial thickening is similar to previous. The lungs and pleural spaces are clear. No pneumothorax is seen. The skeletal structures are osteopenic. The bony thorax is grossly intact. IMPRESSION: No acute cardiopulmonary abnormality. ACT 112: Negative or not required by law. Electronically signed by: Nicolás Hernandez M.D. 01/17/2023 5:01 PM Femur X-Ray 01/18/23 08:29 XR femur RT 2V routine HISTORY: 77 years-old Female r/o distal fx acute pain of the right thigh and hip COMPARISON: 01/17/2023 TECHNIQUE: 2 views of the right femur FINDINGS: Severe right hip osteoarthritis. There is unchanged alignment of the acute intertrochanteric fracture of the right femur. Mild adjacent soft tissue swelling. Demineralized appearance of the bones. No additional acute fracture or dislocation identified. Osteoarthritis of the knee. IMPRESSION: Unchanged alignment of the acute intertrochanteric right femoral fracture. ACT 112: Negative or not required by law. The above report was generated using voice recognition software. It may contain grammatical, syntax or spelling errors. Electronically signed by: Hardik Quintanilla M.D. 01/18/2023 9:48 AM Hip X-Ray 01/18/23 14:40 FL hip RT 2-3V CLINICAL HISTORY: RIGHT TROCH NAIL COMPARISON STUDY: Radiographs of same day FLUOROSCOPY TIME: 157.9 FLUOROSCOPY IMAGES: 7 EXPOSURE DOSE: 24.25 mGy FINDINGS: Acute intertrochanteric right femoral fracture. Status post placement of an intertrochanteric nail with medullary sai. There is improved alignment. Expected postoperative soft tissue swelling and deep tissue air. IMPRESSION: Fluoroscopic assistance as above. ACT 112: Negative or not required by law. Electronically signed by: Hardik Quintanilla M.D. 01/18/2023 5:04 PM (1) Fracture of right hip Encounter type: initial encounter Fracture type: closed Qualified Code(s): S72.001A - Fracture of unspecified part of neck of right femur, initial encounter for closed fracture
[2023-01-20 06:23] LABS: Basophils # (auto) 0.02 K/uL (0-0.2); Basophils % (auto) 0.5 %; Eosinophils # (auto) 0.09 K/uL (0-0.50); Eosinophils % (auto) 2.4 %; Hematocrit (blood only) 22.3 % (37.0-47.0); Hemoglobin 7.8 g/dl (12.0-16.0); Immature Granulocytes # (auto) 0.02 K/uL (0.01-0.20); Immature Granulocytes % (auto) 0.5 %; Lymphocytes # (auto) 0.92 K/uL (1.2-3.4); Lymphocytes % (auto) 24.3 %; Mean Corpuscular Volume 105.7 fL (80.0-100.0); Mean Platelet Volume 10.5 fL (9.4-12.4); Monocytes # (auto) 0.44 K/uL (0.11-0.59); Monocytes % (auto) 11.6 %; Neutrophils # (auto) 2.29 K/uL (1.40-6.50); Neutrophils % (auto) 60.7 %; Platelet Count 186 K/uL (130-400); RDW Coefficient of Variation 15.2 % (11.5-14.5); RDW Standard Deviation 58.6 fL (36.4-46.3); Red Blood Count 2.11 M/uL (4.20-5.40); White Blood Count 3.78 K/ul (4.8-10.8)
[2023-01-20 06:55] LABS: Echinocytes 1+
[2023-01-20] MEDS: ASPIRIN 81 MG ECTAB PO SCH ×2 (07:54→21:19)
[2023-01-20] MEDS: HYDROXYUREA 500 MG CAP PO SCH (07:54)
[2023-01-20] MEDS: MAGNESIUM OXIDE 400 MG TAB PO SCH (07:54)
[2023-01-20] MEDS: CHOLECALCIFEROL 5,000 UNITS 125 MCG TAB PO SCH (07:55)
[2023-01-20] MEDS: METOPROLOL SUCC 25MG EXT REL TAB PO SCH (07:55)
[2023-01-20] MEDS: oxyCODONE HCL IR 5 MG TAB (IMMEDIATE RELEASE) PO PRN ×3 (08:00→21:22)
[2023-01-20 16:04] LABS: Hematocrit (blood only) 23.9 % (37.0-47.0); Hemoglobin 8.5 g/dl (12.0-16.0); Mean Corpuscular Hemoglobin 37.8 pg (25.0-34.0); Mean Corpuscular Hgb Conc 35.6 g/dL (32.0-36.0); Mean Corpuscular Volume 106.2 fL (80.0-100.0); Mean Platelet Volume 10.3 fL (9.4-12.4); Platelet Count 259 K/uL (130-400); RDW Coefficient of Variation 15.2 % (11.5-14.5); RDW Standard Deviation 59.2 fL (36.4-46.3); Red Blood Count 2.25 M/uL (4.20-5.40); White Blood Count 5.08 K/ul (4.8-10.8)
--- NOTE | 2023-01-20 17:28 | Hospitalist Progress Note ---
Date of Service January 20, 2023 Assessment & Plan (1) Fracture of right hip: Plan: Right hip fracture Patient underwent EGD/colonoscopy and upon preparing to leave fell while putting on her pants with immediate right hip pain - Found to have right intertrochanteric hip fracture - S/p R intertrochanteric hip intramedullary nail on 01/18 - Normal Vit D at 61 - Monitor post-op anemia - ADAT, tolerating PO well - DVT ppx with salomon/scd/asa per ortho - Plan for SNF for rehab - pending insurance approval - anticipate d/c 01/21 if approval and bed available - Pain managed currently on oxycodone alone, will discontinue dilaudid and continue tyl+oxy PRN - F/u with Dr Joshua team in 12-14 days, for appt - Hale removed, awaiting void - No BM post-op yet. Bowel regimen ordered (2) Fall: Plan: Mechanical fall (3) Hypokalemia: Plan: Potassium was 2.9 on admission Has been replaced and resolved Monitor BMP (4) Postoperative anemia: Plan: Trend CBC, improved this afternoon Transfuse if Hgb <7 (5) Hyponatremia: Plan: Chronic, continue monitoring for now would defer to further outpatient eval, consider nephrology Plan DVT prophylaxis: SCDs/SALOMNO/ASA BID per ortho Diet: ADAT Disposition: Medical/surgical, PT OT consult. Patient will need rehab after surgery CODE STATUS Admission and Anticipated Discharge Date Admission Date: January 17, 2023 Subjective Currently doing well, right hip pain adequately controlled. Hale removed this morning and still waiting to void. Has not yet had a bowel movement, but again notes that she had recently had the colonoscopy prep and just recently started eating postoperatively. Denies any lightheadedness or dizziness, chest pain, shortness of breath. Using incentive spirometer Physical Exam Physical Exam: General: Well-appearing, NAD Cardiovascular: RRR Pulmonary: CTAB, no W/R/R Abdomen: Soft, NT/ND, no guarding Extremities: R hip with overlying bandage C/D/I, no pedal edema Neurologic: AAOx3, no focal deficits Psychiatric: Appropriate mood/affect Results & Data Results & Data Vital Signs (Past 12 Hours) Vital Signs Temp Pulse Resp BP BP Pulse Ox Pulse Ox 08/06/23 15:59 36.8 C 93 H 16 106/65 93 01/20/23 07:49 109 H 111/70 01/20/23 06:17 98 01/20/23 05:49 36.7 C 90 18 110/67 98 O2 Del Method O2 Del Method 01/20/23 15:59 Room Air 01/20/23 07:49 01/20/23 06:17 Room Air 01/20/23 05:49 Room Air Laboratory Results Hemoglobin noted to drop to 7.8 this morning and improved to 8.5 this afternoon PG Care Time/CCT Total # of Minutes Spent Total Time Spent with Patient: Total time spent is greater than 50% in coordination of care (as documented) at patient's floor/unit and/or counseling patient: Coding Level of Care Code 51623 SUB INP/OBS CARE 07/11MIN Diagnoses Fracture of right hip S72.001A Encounter type: initial encounter Fracture type: closed Fall W19.XXXA Encounter type: initial encounter Hypokalemia E87.6 Postoperative anemia D64.9 Hyponatremia E87.1 (1) Fracture of right hip Encounter type: initial encounter Fracture type: closed Qualified Code(s): S72.001A - Fracture of unspecified part of neck of right femur, initial encounter for closed fracture (2) Fall Encounter type: initial encounter Qualified Code(s): W19.XXXA - Unspecified fall, initial encounter
[2023-01-20] MEDS: DULoxetine HCL 20 MG CAP PO SCH (21:19)
[2023-01-20] MEDS: BIMATOPROST 0.01% OP SOLN 2.5 ML BTL OP SCH (21:20)
[2023-01-20] MEDS: DOCUSATE SODIUM/SENNA 50/8.6MG TAB PO SCH (21:23)
[2023-01-21 06:23] LABS: Basophils # (auto) 0.03 K/uL (0-0.2); Basophils % (auto) 0.8 %; Eosinophils # (auto) 0.12 K/uL (0-0.50); Eosinophils % (auto) 3.4 %; Hematocrit (blood only) 22.4 % (37.0-47.0); Hemoglobin 7.9 g/dl (12.0-16.0); Immature Granulocytes # (auto) 0.02 K/uL (0.01-0.20); Immature Granulocytes % (auto) 0.6 %; Lymphocytes # (auto) 0.89 K/uL (1.2-3.4); Mean Corpuscular Hemoglobin 37.4 pg (25.0-34.0); Mean Corpuscular Hgb Conc 35.3 g/dL (32.0-36.0); Mean Corpuscular Volume 106.2 fL (80.0-100.0); Mean Platelet Volume 10.2 fL (9.4-12.4); Monocytes # (auto) 0.31 K/uL (0.11-0.59); Monocytes % (auto) 8.7 %; Neutrophils # (auto) 2.19 K/uL (1.40-6.50); Neutrophils % (auto) 61.5 %; Platelet Count 218 K/uL (130-400); RDW Coefficient of Variation 14.8 % (11.5-14.5); RDW Standard Deviation 58.5 fL (36.4-46.3); Red Blood Count 2.11 M/uL (4.20-5.40); White Blood Count 3.56 K/ul (4.8-10.8)
[2023-01-21 06:38] LABS: BUN Creatinine Ratio 27.1 (10-20); Calcium 7.8 mg/dl (8.6-10.3); Creatinine Clr Calc Pharmacy 61.3 ml/min; Est GFR (African American) 101.7 ml/min; Est GFR (Non-African American) 87.8 ml/min; Potassium 3.3 mmol/L (3.5-5.1)
[2023-01-21 06:41] LABS: Polychromasia 1+
[2023-01-21] MEDS: ASPIRIN 81 MG ECTAB PO SCH ×2 (08:03→21:47)
[2023-01-21] MEDS: oxyCODONE HCL IR 5 MG TAB (IMMEDIATE RELEASE) PO PRN ×2 (08:03→12:16)
[2023-01-21] MEDS: HYDROXYUREA 500 MG CAP PO SCH (08:04)
[2023-01-21] MEDS: CHOLECALCIFEROL 5,000 UNITS 125 MCG TAB PO SCH (08:04)
[2023-01-21] MEDS: MAGNESIUM OXIDE 400 MG TAB PO SCH (08:04)
[2023-01-21] MEDS: METOPROLOL SUCC 25MG EXT REL TAB PO SCH (08:04)
[2023-01-21] MEDS ORDERED: POTASSIUM CHLORIDE CRTAB 20 MEQ TABCR PO STA (09:05)
--- NOTE | 2023-01-21 14:32 | Hospitalist Progress Note ---
Date of Service January 21, 2023 Assessment & Plan (1) Fracture of right hip: Plan: Status post open reduction internal fixation right hip fracture. Postoperative day #3. Orthopedic consultation and management appreciated. Pain control measures. (2) Fall: Plan: Mechanical fall caused right hip fracture. No syncope (3) Hypokalemia: Plan: Oral replacement. Serial labs (4) Postoperative anemia: Plan: Hemoglobin stable at 7.9. Oral iron replacement started. Serial labs. Transfuse if Hgb <7 (5) Hyponatremia: Plan: Chronic. Mild. Asymptomatic. Serial labs Plan IPR placement denied by insurance. SNF placement pending. Admission and Anticipated Discharge Date Admission Date: January 17, 2023 Subjective Alert and oriented. No new problems. Potassium mildly low. Hemoglobin stable at 7.9. Peer to peer review accomplished and insurance has denied IPR placement. SNF placement pending. Oral iron replacement started. Review of Systems Review of Systems: Constitutional-no fever or chills ENT-no blurred vision, no double vision, no epistaxis, no sore throat Respiratory-no cough, no wheezing, no shortness of breath Cardiac-no palpitations, no chest pain, no syncope GI-no nausea, vomiting, diarrhea, melena, hematochezia -no urinary retention, no urinary incontinence, no dysuria, no hematuria Musculoskeletal-postoperative right hip pain as expected Skin-no bruising, no rashes, no pruritus Neuro- no paresthesia, no weakness Psych-no depression, no anxiety Physical Exam Physical Exam: General-alert and oriented x3, no fevers, no chills HEENT-head atraumatic and normocephalic, pupils equal and reactive to light, extraocular muscles intact Neck-no lymphadenopathy or thyromegaly, trachea midline Chest-clear to auscultation percussion. No rales wheezing or rhonchi Cardiac-regular rate and rhythm, normal S1 and S2 Abdomen-normal bowel sounds, nontender, no hepatosplenomegaly Extremities-postoperative right hip discomfort as expected with limited range of motion. Surgical site is unremarkable Neuro-cranial nerves II through XII intact, motor and sensory function within normal limits, strength symmetrical , no focal deficits Psych-normal affect, normal mood Results & Data Results & Data Vital Signs (Past 12 Hours) Vital Signs Temp Pulse Resp BP Pulse Ox Pulse Ox O2 Del Method 08/07/23 07:23 36.7 C 95 H 16 118/71 96 Room Air 01/21/23 04:49 99 O2 Del Method 01/21/23 07:23 01/21/23 04:49 Room Air Laboratory Results 01/21/23 05:31 01/21/23 05:31 PG Care Time/CCT Total # of Minutes Spent Total Time Spent with Patient: Total time spent is greater than 50% in coordination of care (as documented) at patient's floor/unit and/or counseling patient: Coding Level of Care Code 58038 SUB INP/OBS CARE 3/50MIN Diagnoses Fracture of right hip S72.001A Encounter type: initial encounter Fracture type: closed Fall W19.XXXA Encounter type: initial encounter Hypokalemia E87.6 Postoperative anemia D64.9 Hyponatremia E87.1 (1) Fracture of right hip Encounter type: initial encounter Fracture type: closed Qualified Code(s): S72.001A - Fracture of unspecified part of neck of right femur, initial encounter for closed fracture (2) Fall Encounter type: initial encounter Qualified Code(s): W19.XXXA - Unspecified fall, initial encounter
[2023-01-21] MEDS: FERROUS SULFATE 325 MG TAB PO SCH (17:15)
[2023-01-21] MEDS: DULoxetine HCL 20 MG CAP PO SCH (21:48)
[2023-01-21] MEDS: BIMATOPROST 0.01% OP SOLN 2.5 ML BTL OP SCH (21:48)
[2023-01-21] MEDS: DOCUSATE SODIUM/SENNA 50/8.6MG TAB PO SCH (21:49)
[2023-01-22 07:27] LABS: Hematocrit (blood only) 21.6 % (37.0-47.0); Hemoglobin 7.6 g/dl (12.0-16.0); Mean Corpuscular Hemoglobin 36.4 pg (25.0-34.0); Mean Corpuscular Hgb Conc 35.2 g/dL (32.0-36.0); Mean Corpuscular Volume 103.3 fL (80.0-100.0); Mean Platelet Volume 10.1 fL (9.4-12.4); Platelet Count 238 K/uL (130-400); RDW Coefficient of Variation 14.8 % (11.5-14.5); RDW Standard Deviation 56.4 fL (36.4-46.3); Red Blood Count 2.09 M/uL (4.20-5.40); White Blood Count 2.97 K/ul (4.8-10.8)
[2023-01-22] MEDS: METOPROLOL SUCC 25MG EXT REL TAB PO SCH (08:03)
[2023-01-22] MEDS: HYDROXYUREA 500 MG CAP PO SCH (08:03)
[2023-01-22] MEDS: FERROUS SULFATE 325 MG TAB PO SCH (08:03)
[2023-01-22] MEDS: CHOLECALCIFEROL 5,000 UNITS 125 MCG TAB PO SCH (08:03)
[2023-01-22] MEDS: ASPIRIN 81 MG ECTAB PO SCH (08:04)
[2023-01-22] MEDS: MAGNESIUM OXIDE 400 MG TAB PO SCH (08:04)
[2023-01-22 08:07] LABS: BUN Creatinine Ratio 30.2 (10-20); Creatinine Clr Calc Pharmacy 68.2 ml/min; Est GFR (African American) 105.4 ml/min; Est GFR (Non-African American) 90.9 ml/min; Potassium 4.1 mmol/L (3.5-5.1)
[2023-01-22] MEDS: oxyCODONE HCL IR 5 MG TAB (IMMEDIATE RELEASE) PO PRN (11:19)
--- NOTE | 2023-01-22 11:55 | Discharge Summary ---
Date of Service January 22, 2023 Admission HPI Per Admitting Provider Shana is a 77-year-old female with past medical history of tachycardia, cataracts, colitis, thrombocytosis followed with hematology oncology, generalized weakness who presents to the emergency department after a fall with immediate right hip pain and inability to bear weight. She has had ongoing weight loss and diarrhea Shana is seen at the bedside. She reports that she had a colonoscopy and endoscopy for chronic diarrhea which actually went well, but when she was attempting to put on her pants to get ready to leave she lost her balance and fell striking her right hip and having immediate pain and inability to bear weight. She had no chest pain or chest pressure, denies fever, chills, sweats, and did not have any lightheadedness/dizziness/syncope/presyncope/vertigo that contributed to her fall. She feels sensation is intact in her feet bilaterally, and she is able to move her ankles but cannot flex at her right hip. She has no history of coronary disease, diabetes, or hypertension. She has chronic hypokalemia with diarrhea which has normalized with IV treatment in the past. She notes that her diarrhea did resolve about 7 days ago and she has not had diarrhea in the last week.She has previously seen Dr. Enriquez for arthritis, and was thinking about a right hip replacement but had not yet done this. takes aspirin, but does not take any anticoagulants. At time of bedside visit she reports she feels okay, but she is thirsty and still has pain with any attempted movement of her right hip. Feels comfortable as long as she does not move in the bed. Medical History: Reviewed Medications: Reviewed Surgical History: Reviewed Family history: Reviewed Allergies: Reviewed Social History: Reviewed Code Status: Full code Principal Diagnosis Mechanical fall, right hip fracture, acute blood loss anemia postoperatively, hypokalemia Discharge Exam General-alert and oriented x3, no fevers, no chills HEENT-head atraumatic and normocephalic, pupils equal and reactive to light, extraocular muscles intact Neck-no lymphadenopathy or thyromegaly, trachea midline Chest-clear to auscultation percussion. No rales wheezing or rhonchi Cardiac-regular rate and rhythm, normal S1 and S2 Abdomen-normal bowel sounds, nontender, no hepatosplenomegaly Extremities-postoperative right hip discomfort as expected with limited range of motion. Surgical site is unremarkable Neuro-cranial nerves II through XII intact, motor and sensory function within normal limits, strength symmetrical , no focal deficits Psych-normal affect, normal mood Discharge Data Allergies Allergy/AdvReac Type Severity Reaction Status Date / Time Iodinated Contrast Media Allergy Intermediate Hives/Itchi Verified 01/17/23 13:26 ng Consultations 01/17/23 20:45 Consult Orthopedic Surgery Routine Procedures Performed Operation Date: 01/18/23 10:35 Actual Procedures p Right Synthes Troch Nail(Right) - Valdo Joshua MD Ordered Studies 01/18/23 14:40 FL hip RT 2-3V Routine Hospital Course (1) Fracture of right hip: Status post open reduction internal fixation right hip fracture. Postoperative day #4. Orthopedic consultation and management appreciated. Pain control measures. (2) Fall: Mechanical fall caused right hip fracture. No syncope (3) Hypokalemia: Corrected with oral replacement. Serial labs (4) Postoperative anemia: Hemoglobin now stable but low. Continue oral iron replacement. Serial labs. (5) Hyponatremia: Chronic. Mild. Asymptomatic. Serial labs Plan You [facility] SNF placement today, January 22 Total Time Total Time Spent Total Time Spent (In Minutes): 45 min Discharge Plan Discharge Items Patient Disposition: Transfer [facility] Reason For Visit: R HIP FXR Discharge Diagnosis: Mechanical fall, right hip fracture, hypokalemia, acute blood loss anemia postoperative Activity: Per Instructions section Activity Comment: Weightbearing as tolerated right leg, with assistance Weightbearing: Right toe touch Non-emergency contact: Surgeon Call non-emergency contact if: your temperature is above 101, your wound has increased redness, your wound has increased drainage and your wound pain has increased Follow-up/Referrals: Almaz Burt MD [Primary Care Provider] - Diet: Regular and Heart Healthy June Attending Provider Instructions: See primary care provider after discharge from [facility]. Follow-up with video production specialist as instructed June Traffic Circuit Engineer Provider Instructions: [facility] DISCHARGE INSTRUCTIONS: HIP FRACTURE SELF CARE INSTRUCTIONS: A. You are to ambulate with a walker or crutches for approximately 6 weeks. B. You are TOE TOUCH WEIGHT BEARING on your operative lower extremity for at least 6 weeks. C. Wear low heeled shoes with non-slip soles D. Be sure that your floors are free of things that could trip you throw rugs, electrical cords, and small objects. Avoid wet and waxed floors, especially with crutches/walker/cane. E. Try to walk several times a day with rest periods between. F. You may shower 48 hours after surgery and get the incision area wet, but DO NOT soak or submerge incision area in water. (No baths, swimming pools, hot tubs) G. You may have a large, band-aid like dressing over your incision (Aquacel). This will remain on your incision for 7 days, and then can be removed. You CAN shower with this on. If incision is leaking through the dressing, please call the office . H. Do NOT apply soap or any ointment/lotions directly over incision. I. You may use ice as needed to operative site. SPECIAL CARE INSTRUCTIONS: VERY IMPORTANT TO READ AND REVIEW A. You may be at risk for phlebitis or blood clots. a. Wear surgical stockings (SALOMON hose) for 2 weeks after surgery to improve circulation and reduce swelling. b. Take ASPIRIN 81 mg twice daily for 4 weeks or as directed. This is your blood thinner. c. If you are on Coumadin- you will have daily/weekly blood work to monitor your levels. This will be done by either your family physician/computer numerical control programmer (if you are on Coumadin chronically) versus your orthopedic surgeon. Expect a phone call the day of or the day after your blood work is drawn to adjust your dose accordingly. B. There are a few signs you need to watch for after you are home. Call [facility] at [phone] if you experience any of the following: a. If you have a temperature of 101 degrees or higher. b. Sudden increase in pain in your hip not relieved by rest or pain medication. c. Any fluid or drainage from the incision; redness of the incision. d. Shortness of breath or chest pain. B. Please call [facility] at [phone] if you have any questions or concerns about your operation or recovery. C. Call your physician if: a. Temperature is greater than 101 degrees (F). b. Pain is not relieved by prescribed pain medications. c. Increase drainage or redness from incision. d. Unanswered questions or concerns. D. Pain Medication: a. You will be prescribed pain medication upon discharge that should last till your first post-operative appointment. b. If you experience nausea and/or skin rash, discontinue this medication and contact our office for an alternative medication. c. Caution- narcotic pain medication can cause constipation. FOLLOW UP VISIT: [facility] at [phone] to schedule a follow up appointment 10-14 days from the date of your surgery date. Pending Studies at Discharge: No Stand-Alone Forms: My [facility] Skilled Items Patient informed of condition?: Yes DNR: Yes Discharge Level of Care: Skilled Communicable Disease: No Discharge Prognosis: Stable Lines: None Urinary Catheter: No Medications and DC Order Prescriptions: New aspirin 81 mg capsule 81 mg PO BID Qty: 1 0RF ferrous sulfate 325 mg (65 mg iron) Tablet,Delayed Release (Dr/Ec) 325 mg PO BIDM Qty: 0 0RF Continued hydroxyurea 500 mg Capsule 500 mg PO QAM metoprolol succinate 25 mg Tablet Extended Release 24 Hr 25 mg PO QAM Lumigan 0.01 % Drops 1 drp OPHTHALMIC (EYE) HS Patient Comments: BOTH EYES Vitamin D3 500 mcg PO QAM pantoprazole 40 mg tablet,delayed release (DR/EC) 40 mg PO QAM duloxetine 20 mg capsule,delayed release(DR/EC) 20 mg PO QPM doxycycline hyclate 100 mg capsule 100 mg PO BID 21 Days Qty: 42 0RF Discontinued aspirin 81 mg Tablet,Delayed Release (Dr/Ec) 81 mg PO HS Discharge Orders: Discharge Order (Routine); Ordered 01/22/23 Ordered By: Dagoberto Escamilla Admission Data Admit Date/Time: 01/17/23 18:17 Attending Provider: Dagoberto Escamilla Admit Provider: Kennedy Valiente Primary Care Provider: Almaz Burt Other Providers: Valdo Joshua ; Khadar Ramos [facility] ; [facility] Coding Level of Care Code 71895 INP/OBS DISCH >30 MIN Diagnoses Fracture of right hip S72.001A Encounter type: initial encounter Fracture type: closed Fall W19.XXXA Encounter type: initial encounter Hypokalemia E87.6 Postoperative anemia D64.9 Hyponatremia E87.1
== END 2023-01-22 13:11 | DRG 481 ==
LOC: ED 15:40 → 3E 18:17 → SUATTDRO 18:17 → 3E 19:26